=== PATIENT | male | born 1965 | race Caucasian/White ===

== ENCOUNTER 2023-08-09 07:40 | Outpatient (OUT) | payer BC, SELFPAY ==
[2023-08-09 07:59] LABS: Basophils Absolute Auto 0.1 10^3/uL (0.0-0.1); Basophils Percent Auto 0.7 % (0.2-2.0); Eosinophils Absolute Auto 0.2 10^3/uL (0.0-0.7); Eosinophils Percent Auto 2.1 % (0.9-7.0); Hematocrit 51.2 % (42.0-54.0); Hemoglobin 16.8 g/dL (14.0-18.0); Immature Granulocytes Abs Auto 0.03 10^3/uL (0.00-0.03); Immature Granulocytes Pct Auto 0.4 % (0.0-0.5); Lymphocytes Absolute Auto 1.5 10^3/uL (1.2-3.8); Lymphocytes Percent Auto 19.9 % (20.5-60.0); Mean Corpuscular HGB Conc 32.8 g/dL (29.9-35.2); Mean Corpuscular Volume 85.2 fL (80.0-94.0); Mean Platelet Volume 10.6 fL (9.5-13.5); Monocytes Absolute Auto 0.5 10^3/uL (0.3-0.8); Monocytes Percent Auto 6.8 % (1.7-12.0); Neutrophils Absolute Auto 5.1 10^3/uL (1.4-6.5); Neutrophils Percent Auto 70.1 % (43.0-75.0); Platelet Count 247 10^3/uL (150-450); Red Blood Count 6.01 10^6/uL (4.70-6.10); Red Cell Distribution Width 12.9 % (11.0-15.0); White Blood Count 7.3 10^3/uL (4.0-11.0)
[2023-08-09 08:30] LABS: Alanine Aminotransferase 33 U/L (16-63); Albumin Globulin Ratio 1.1; Albumin Level 3.8 g/dL (3.4-5.0); Alkaline Phosphatase 117 U/L (46-116); Anion Gap 13.3; Aspartate Amino Transferase 17 U/L (15-37); BUN Creatinine Ratio 23.3; Bilirubin Total 0.5 mg/dL (0.2-1.0); Calcium 9.2 mg/dL (8.5-10.1); Chloride 104 mmol/L (98-107); Cholesterol 180 mg/dL (<=200); Estimated GFR (African America >60 (>=60); Estimated GFR (Non-African Ame >60 (>=60); Globulin 3.6 g/dL; Glucose 117 mg/dL (74-106); HDL Cholesterol 45 mg/dL (40-60); Potassium 4.3 mmol/L (3.5-5.1); Sodium 140 mmol/L (136-145); Total Protein 7.4 g/dL (6.4-8.2); Triglycerides 120 mg/dL (<=150)
[2023-08-09 09:41] LABS: Prostate Specific Antigen Scrn 0.26 ng/mL (<=4.00)
== END 2023-08-09 07:41 | disposition home or self-care (01) ==
LOC: LAB 07:43
PROVIDERS: PCP Internal Medicine; Visit Provider Internal Medicine
DX: Z00.00 Encounter for general adult medical examination without abnormal findings (principal)
CPT/HCPCS: 36415; 80053; 80061; 85025; G0103

== ENCOUNTER 2024-09-07 09:12 | Outpatient (OUT) | payer BC, SELFPAY ==
--- OUTSIDE RECORDS SUMMARY | 2024-09-07 09:17 | XMS_ITS | CCD ---
Author Organization [facility] Inform ion Partnership [facility] Care Team Providers Care Electric Train Driver Name Role Phone Tye Champion Unavailable Unavailable Unavailable Casey Willis Unavailable Vinicio España Unavailable DO Tye Champion Primary Care Provider DO Casey Willis Attending Provider [phone] DO Vinicio España Attending Provider KAYLAN, DR POOL Admitting Unavailable BALL, DR POOL Attending Unavailable BALL, DR POOL Primary Care Unavailable BALL, DR POOL Consulting Unavailable BALL, DR POOL Admitting Unavailable BALL, DR POOL Attending Unavailable BALL, DR POOL Primary Care Unavailable BALL, DR POOL Consulting Unavailable MISC, DR ISLAS Admitting Unavailable MISC, DR ISLAS Attending Unavailable BALL, DR POOL Primary Care Unavailable BALL, DR POOL Consulting Unavailable BALL, DR POOL Admitting Unavailable BALL, DR POOL Attending Unavailable BALL, DR POOL Primary Care Unavailable BALL, DR POOL Consulting Unavailable WEST, DR CASEY Lockwood Consulting Unavailable BALL, DR POOL Admitting Unavailable BALL, DR POOL Attending Unavailable BALL, DR POOL Primary Care Unavailable BALL, DR POOL Consulting Unavailable ZIEBER, DR MAGGY Quinones Consulting Unavailable Tye Champion Unavailable DO Tye Champion Primary Care Provider [phone] DO Jeffrey Ayoub Attending Provider Isreal, Dr. Adriel Wise Attending Jasmyne Ayoub, Dr. Adriel Wise Referring Kerlineva gustavo Champion, Dr. Tye Munoz Primary Care Stephanie Champion, Dr. Tye Munoz Primary Care Stephanie Ayoub, Dr. Adriel Wise Attending Jasmyne Ayoub, Dr. Adriel Wise Referring Kerlinemeche Ayoub, Dr. Adriel Wise Attending Jasmyne Champion, Dr. Tye Munoz Primary Care Stephanie Ayoub, Dr. Adriel Wise Attending Jasmyne Ayoub, Dr. Adriel Wise Referring Jasmyne Champion, Dr. Tye Munoz Primary Care Stephanie Champion, Tye Primary Care Unavailable Casey Willis Admitting Unavailable Casey Willis Attending Unavailable Jeffrey Ayoub Attending Unavailable Jeffrey Ayoub Admitting Unavailable Tye Champion Primary Care Unavailable Kaylan, Tye Primary Care Unavailable Vinicio España Admitting Unavailable Vinicio España A Attending Unavailable Eloy Españain A Admitting Unavailable Vinicio España A Attending Unavailable Tye Champion Primary Care Unavailable Jeffrey Ayoub Admitting Unavailable Jeffrey Ayoub Attending Unavailable Tye Champion Primary Care Unavailable ADRIEL AYOUB Attending Unavailable TYE CHAMPION Primary Care Unavailable Tye Champion MD Primary Care Provider SONIA CARPIO Attending Unavailable CHRISTOPHER WYLIE Attending Unavailable SONIA CARPIO Attending Unavailable SONIA CARPIO Attending Unavailable Allergies Allergy Classification Reported Allergen(s) Allergy Type Date of Onset Reaction(s) Facility (3 sources) patient allergy list reviewed by nurse or physicia Propensity to adverse reactions 9 Comment:Done iRewind Other (3 sources) Statins Support *DIETARY PRODUCTS/DIETAR Y MANAGEME Propensity to adverse reactions Comment:STATIN S iRewind Other (7 sources) Other Propensity to adverse reactions 3 [facility] Medications Current Medications Medication Drug Class(es) Dates Sig (Normalized) Sig (Original) amLODIPine 5 mg oral tablet (20 sources) Dihydropyridine Calcium Channel Meghna Start: 01-14-2024 Amlodipine 5 mg tablet Active 0 .ROUTE .COMPLEX 90 January 14, 2024 5:27pm TAKE 1 TABLET DAILY Start: 08-01-2023 End: 01-14-2024 take 1 tablet by mouth once daily Amlodipine 5 mg tablet Discontinued 5 MG PO Daily August 01, 2023 1:00am January 14, 2024 5:27pm Start: 08-11-2019 End: 08-01-2023 take 5 mg by mouth once daily in the morning Amlodipine 10 mg tablet Discontinued 5 MG PO Every morning August 11, 2019 12:00am August 01, 2023 12:02pm Start: 08-11-2019 End: 08-01-2023 take 5 mg by mouth once daily in the morning Amlodipine Discontinued 5 MG PO Every morning August 11, 2019 12:00am August 01, 2023 12:02pm amLODIPine Besyl ate 10 MG TK 1 T PO D Oral for 90 Active aspirin 81 mg chewable tablet (20 sources) Platelet Aggregation Inhibitor, Nonsteroidal Anti-inflammatory Drug Start: 10-18-2021 take 1 tablet by mouth every twenty-four hours Aspirin 81 MG 1 tablet Orally Once a day for 37 days September, Active Start: 10-18-2021 take 1 tablet by domitila th every twelve hours Aspirin 81 MG 1 tablet Orally twice a day for 37 days September, Active Start: 09-16-2018 take 1 tablet by domitila th once daily in the morning Aspirin (Aspir-81) 81 mg Tablet,Delayed Release (Dr/Ec) Active 81 MG PO Every morning September 16, 2018 12:00am atorvastatin 80 mg oral tablet (20 sources) HMG-CoA Reductase Inhibitor Start: 07-12-2023 Atorvastatin 80 mg tablet Active 0 .ROUTE .COMPLEX 90 July 12, 2023 3:34pm TAKE 1 TABLET EVERY EVENING Start: 07-05-2021 End: 07-12-2023 take 1 tablet by mouth once daily at bedtime Atorvastatin 80 mg tablet Discontinued 80 MG PO Daily at bedtime November 24, 2022 12:00am July 12, 2023 3:34pm Start: 08-11-2019 End: 11-24-2022 take 1 tablet by mouth at bedtime Atorvastatin 40 mg tablet Discontinued 40 MG PO Bedtime August 11, 2019 12:00am November 24, 2022 9:08am colchicine 0.6 mg oral capsule (1 source) Start: 08-21-2024 take 1 capsule by mouth twice daily Colchicine 0.6 mg capsule Active 0.6 MG PO Twice daily 14 7 August 21, 2024 12:00am Continuous Glucose Sensor (Dexcom G7 Sensor) misc (5 sources) Start: 04-08-2024 Continuous Glu cose Sensor (Dexcom G7 Sensor) misc Indications: Type 2 diabetes mellitus with both eyes affected by mild nonproliferative retinopathy without macular edema, with long-term current use of insulin (CMS/HCC) Inject 1 Device under the skin See administration instructions Change every 10 days 9 each 3 04/08/2024 Active docusate sodium 100 mg oral capsule (11 sources) Start: 10-18-2021 take 1 capsule by mouth every twelve hours doxycycline hyclate 100 mg oral tablet (11 sources) Tetracycline -class Drug Start: 10-18-2021 take 1 tablet by mouth every twelve hours Doxycycline Hyclate 100 MG 1 tablet Orally Twice a day for 7 days September, Active Start: 10-10-2019 End: 01-13-2020 take 1 tablet by mouth twice daily Doxycycline Hyclate 100 mg tablet Discontinued 100 MG PO Twice daily 10 October 10, 2019 12:00am January 13, 2020 5:24am empagliflozin 10 mg oral tablet (20 sources) Sodium-Glucose Cotransporter 2 Inhibitor Start: 01-10-2022 End: 07-05-2024 take 1 tablet by mouth once daily empagliflozin (Jardiance) 10 MG Indications: Type 2 diabetes mellitus with peripheral neuropathy (CMS/HCC) Take 1 tablet (10 mg) by mouth Daily 90 tablet 3 07/05/2024 Active Start: 01-10-2022 take 1 tablet by domitila th once daily Empagliflozin (Jardiance) 10 mg tablet Active 10 MG PO Daily January 10, 2022 12:00am take 1 tablet by domitila th once daily Jardiance 10 MG Oral Tablet TAKE 1 TABLET BY MOUTH ONCE DAILY Quantity: 0 Refills: 0 Ordered: 29-Dec-2022 DO Active take 0.5 tablet by m outh once daily Jardiance 25 MG Oral Tablet 1/2 tablet daily Quantity: 0 Refills: 0 Ordered: 04-May-2021 DO Active 3 ml insulin degludec 200 unt/ml pen injector (20 sources) Insulin Analog Start: 07-15-2024 End: 07-15-2025 insulin degludec (Tresiba FlexTouch) 200 UNIT/ML injection Indications: Type 2 diabetes mellitus with peripheral neuropathy (CMS/HCC) Inject 52 Units under the skin in the morning. 30 mL 3 07/15/2024 07/15/2025 Active Start: 07-05-2024 End: 07-05-2025 insulin degludec (Tresiba Fl exTouch) 200 UNIT/ML injection Indications: Type 2 diabetes mellitus with peripheral neuropathy (CMS/HCC) Inject 58 Units under the skin in the morning. 30 mL 3 07/05/2024 07/05/2025 Active Start: 06-19-2024 End: 07-05-2024 insulin degludec (Tresiba Fl exTouch) 200 UNIT/ML injection Indications: Type 2 diabetes mellitus with peripheral neuropathy (CMS/HCC) Inject 70 Units under the skin in the morning. 33 mL 1 06/19/2024 07/05/2024 Discontinued (Dose adjustment) Start: 03-29-2024 insulin deglud ec (Tresiba FlexTouch) 200 UNIT/ML injection Indications: Type 2 diabetes mellitus with peripheral neuropathy (CMS/HCC) Inject 70 Units under the skin in the morning. 33 mL 3 03/29/2024 Active Start: 01-01-2024 End: 03-29-2024 insulin degludec (Tresiba Fl exTouch) 200 UNIT/ML injection Indications: Type 2 diabetes mellitus with peripheral neuropathy (CMS/HCC) INJECT 70 UNITS SUBCUTANEOUSLY DAILY 33 mL 3 01/01/2024 03/29/2024 Discontinued (Reorder) Start: 01-10-2022 Insulin Deglud ec (Tresiba Flextouch U-200) 200 unit/mL (3 mL) insulin pen Active 70 UNIT SUBCUT Daily January 10, 2022 12:00am Start: 01-10-2022 Insulin Deglud ec (Tresiba Flextouch U-200) 200 unit/mL (3 mL) insulin pen Active 70 UNIT SUBCUT Daily January 10, 2022 12:00am Tresiba 100 UNIT /ML as directed Subcutaneous Active Tresiba 100 UNIT /ML as directed Subcutaneous Active Insulin Degludec (Tresiba Flextouch U-200) 200 unit/mL (3 mL) insulin pen (7 sources) Start: 08-02-2024 Insulin Deglud ec (Tresiba Flextouch U-200) 200 unit/mL (3 mL) insulin pen Active 52 UNIT SUBCUT Daily August 02, 2024 9:39am Start: 01-10-2022 End: 08-02-2024 Insulin Degludec (Tresiba Fl extouch U-200) 200 unit/mL (3 mL) insulin pen Discontinued 64 UNIT SUBCUT Daily January 10, 2022 12:00am August 02, 2024 9:39am Start: 01-10-2022 Insulin Deglud ec (Tresiba Flextouch U-200) 200 unit/mL (3 mL) insulin pen Active 64 UNIT SUBCUT Daily January 10, 2022 12:00am insulin isophane / insulin, regular, human (7 sources) Insulin Start: 05-25-2022 HumuLIN R U-50 0 (CONCENTRATED) 500UNIT/ML HumuLIN R U-500 (CONCENTRATED)( 500UNIT/ML Subcutaneous 5-7 am, 10-12 noon, 17-20 pm three times daily ) Active -Hx Entry Subcutaneous three times daily for 0 *Pick strength-form from Mercatus for eRX* Apr, Active HumuLIN 70/30 Kw ikPen (70-30) 100 UNIT/ML Subcutaneous Suspension Pen-injector inject as directed Quantity: 0 Refills: 0 Ordered: 23-Nov-2022 DO Active 3 ml insulin lispro 200 unt/ml pen injector (18 sources) Insulin Analog Start: 02-21-2024 End: 03-29-2024 insulin lispro (HumaLOG KWIKPEN) 200 UNIT/ML solution pen-injector pen Indications: Type 2 diabetes mellitus with peripheral neuropathy (CMS/HCC) 1:4 CARBOHYDRATE RATIO BEFORE MEALS PLUS CORRECTION 1:30 GREATER THAN 150MG/DL ( MAXIMUM DAILY: 100 UNIT) 45 mL 3 03/29/2024 Active Start: 01-10-2022 Insulin Lispro (Humalog Kwikpen Insulin) 200 unit/mL (3 mL) insulin pen Active 1 UNIT SUBCUT Three times daily January 10, 2022 12:00am 1:4 carb ratio with meals Start: 01-10-2022 Insulin Lispro (Humalog Kwikpen Insulin) 200 unit/mL (3 mL) insulin pen Active 1 UNIT SUBCUT Three times daily January 10, 2022 12:00am 1:4 carb ratio with meals Insulin Lispro 1 00 UNIT/ML Subcutaneous Solution USE DIRECTED. Quantity: 0 Refills: 0 Ordered: 04-May-2021 DO Active Lisinopril (20 sources) Angiotensin Converting Enzyme Inhibitor Start: 06-09-2024 Lisinopril 40 mg tab let Active 0 .ROUTE .COMPLEX 90 June 09, 2024 9:49am TAKE 1 TABLET DAILY Start: 09-16-2018 End: 06-09-2024 lisinopril 40 MG tablet 03/30 Active 24 hr metoprolol succinate 50 mg extended release oral tablet (20 sources) beta-Adrenergic Meghna Start: 06-09-2024 Metopr olol Succinate 50 mg tablet extended release 24 hr Active 0 .ROUTE .COMPLEX 90 June 09, 2024 9:50am TAKE 1 TABLET DAILY Start: 07-05-2021 take 1 tablet by domitila th once daily Metoprolol Succinate ER 50MG Metoprolol Succinate ER 50MG, 1 Tablet Tablet daily # 0, 07/05/2021, No Refill. Active Oral daily for 0 *Pick strength-form from Mercatus for eRX* 07 Jun, 2021 Active Start: 09-16-2018 End: 06-09-2024 take 1 capsule by mouth once daily in the morning Metoprolol Succinate 50 mg Cap,Sprinkle,Er 24hr Dose Pack Discontinued 50 MG PO Every morning September 16, 2018 12:00am June 09, 2024 9:50am metoprolol succi eliel XL (Toprol-XL) 50 MG 24 hr tablet 1 (one) time each day at the same time Active Multiple Vitamin (Multi-Vitamin) tablet (7 sources) Multiple Vitamin (Multi-Vitamin) tablet Take by mouth Active Multiple Vitamins-Minerals (EYE VITAMINS & MINERALS PO) (7 sources) Start: 11-25-19 Multiple Vitamins-Minerals (EYE VITAMINS & MINERALS PO) 1 tablet 11/24/2022 Active Multivitamin preparation (2 sources) Start: 11-25-19 take 1 tablet by mouth once daily Multivitamin Active 1 TAB PO Daily November 24, 2022 12:00am Multivitamin Tablet (2 sources) Start: 11-25-19 take 1 tablet by mouth once daily Multivitamin Tablet Active 1 TAB PO Daily November 24, 2022 12:00am nitroglycerin 0.4 mg sublingual tablet (20 sources) Nitrate Vasodilator Start: 11-25-19 End: 08-02-19 nitroglycerin (Nitrostat) 0.[address] 0.4 mg under the tongue 11/24/2022 Active Start: 11-24-2022 End: 08-02-2023 apply 0.2 mg transdermal route every hour Nitroglycerin 0.2 mg/hr patch 24 hour Discontinued 0.2 MG TRANSDERML Daily November 24, 2022 12:00am August 02, 2023 10:38am Start: 11-24-2022 End: 08-02-2023 Nitroglycerin Discontinued 0 .2 MG TRANSDERML Daily November 24, 2022 12:00am August 02, 2023 10:38am Start: 11-17-2022 apply 1 dose transde rmal route once daily, then apply 1 dose transdermal route every twenty-four hours Nitroglycerin 0.2 MG/HR Transdermal Patch 24 Hour APPLY PATCH FOR 12 TO 14 HOURS DAILY, THEN REMOVE Quantity: 90 Refills: 3 Ordered: 17-Nov-2022 Adriel Ayoub DO Start : 17-Nov-2022 Active new start Start: 08-13-2019 End: 03-24-2022 Nitroglycerin 0.4 mg tablet, sublingual Discontinued 0.4 MG SUBLINGUAL every 5 to 15 minutes as needed for chest pain 60 August 13, 2019 12:00am March 24, 2022 10:56am until response; do not exceed 3 doses per episode Nitroglycerin 0. 4 MG DISSOLVE 1 T UNDER THE TONGUE Q 5 TO 15 MINUTES PRN FOR CHEST PAIN UNTIL RESPONSE. DO NOT EXCEED 3 DOSES PER EPISODE Sublingual for 30 Not-Taking/PRN oxyCODONE hydrochloride 5 mg oral tablet (3 sources) Opioid Agonist Start: 10-18-2021 take 1 tablet by mouth every four hours as needed for pain oxyCODONE HCl 5 MG 1 tablet as needed for pain Orally every 4 hours for 7 days September, Active ticagrelor 90 mg oral tablet (20 sources) Start: 05-25-2022 Brilinta 90MG Brilinta( 90MG Oral 1 two times daily ) Active -Hx Entry Oral two times daily for 0 *Pick strength-form from Mercatus for eRX* Apr, Active Start: 09-18-2018 End: 01-13-2020 take 1 tablet by mouth twice daily Ticagrelor (Brilinta) 90 mg tablet Discontinued 90 MG PO Twice daily 180 September 18, 2018 12:00am January 13, 2020 5:24am Tirzepatide (2 sources) Start: 08-02-2024 Tirzepatide (Mounjaro) 2.5 mg/0.5 mL pen injector Active 2.5 MG SUBCUT every week August 02, 2024 1:00am for 4 weeks Tirzepatide (Mounjaro) 5 MG/0.5ML solution auto-injector (9 sources) Start: 07-05-2024 inject 5 mg by subcutaneous injection every week Tirzepatide (Mounjaro) 5 MG/0.5ML solution auto-injector Indications: Type 2 diabetes mellitus with peripheral neuropathy (CMS/HCC) Inject 5 mg under the skin 1 (one) time per week 6 mL 3 07/05/2024 Active Start: 03-29-2024 End: 07-05-2024 inject 5 mg by subcutaneous injection every week Tirzepatide (Mounjaro) 5 MG/0.5ML solution auto-injector Indications: Type 2 diabetes mellitus with peripheral neuropathy (CMS/HCC) Inject 5 mg under the skin 1 (one) time per week 6 mL 3 03/29/2024 07/05/2024 Discontinued (Reorder) Start: 03-29-2024 inject 5 mg by subcu taneous injection every week Tirzepatide (Mounjaro) 5 MG/0.5ML solution auto-injector Indications: Type 2 diabetes mellitus with peripheral neuropathy (CMS/HCC) Inject 5 mg under the skin 1 (one) time per week 6 mL 3 03/29/2024 Active Vit A-Vit C-Vit C-[id number] (Eye Vitamin And Minerals) [id number] Tablet (4 sources) Start: 11-24-2022 take 1 tablet by mouth once daily Vit A-Vit C-Vit F-Cclf-Hoeszz (Eye Vitamin And Minerals) [id number] iija-[id number]-znyc Tablet Active 1 TAB PO Daily November 24, 2022 12:00am Completed/Discontinued Medications Medication Drug Class(es) Dates Sig (Normalized) Sig (Original) acetaminophen 500 mg oral tablet (2 sources) Start: 10-18-2021 take 2 tablets by mouth every eight hours as needed Tylenol Extra Strength 500 MG 2 tabs Orally every 8 hrs for 30 days September, Not-Taking/PRN acetaminophen 325 mg / HYDROcodone bitartrate 5 mg oral tablet (16 sources) Opioid Agonist Start: 10-10-2019 End: 01-10-2022 take 1 tablet by mouth every four to six hours as needed for pain Hydrocodone-Acetam inophen ([place]) 5-325 mg Tablet Discontinued 1 TAB PO EVERY 4-6 HOURS as needed for Pain 15 January 13, 2020 January 10, 2022 6:23am clopidogrel 75 mg oral tablet (6 sources) P2Y12 Platelet Inhibitor Start: 11-24-2022 End: 08-02-2023 take 1 tablet by mouth once daily Clopidogrel 75 mg tablet Discontinued 75 MG PO 1 time daily November 24, 2022 12:00am August 02, 2023 10:38am Start: 11-23-2022 Clopidogrel Bi sulfate 75 MG Oral Tablet take 4 tablets the first dose equaling 300mg, then take 1 tablet daily equaling 75 mgs. Quantity: 94 Refills: 3 Ordered: 23-Nov-2022 Isreal JOHNSON Adriel Start : 23-Nov-2022 Active Continuous Glucose Sensor (FreeStyle Yosi 3 Sensor) [facility] (6 sources) Start: 03-29-2024 End: 07-05-2024 Continuous Glucose Sensor (FreeStyle Yosi 3 Sensor) [facility] Indications: Type 2 diabetes mellitus with peripheral neuropathy (CMS/HCC) Inject 1 each under the skin every 14 (fourteen) days 6 each 3 03/29/2024 07/05/2024 Discontinued Start: 03-29-2024 Continuous Glu cose Sensor (FreeStyle Yosi 3 Sensor) [facility] Indications: Type 2 diabetes mellitus with peripheral neuropathy (CMS/HCC) Inject 1 each under the skin every 14 (fourteen) days 6 each 3 03/29/2024 Active Start: 01-24-2024 End: 03-29-2024 Continuous Glucose Sensor (F reeStyle Yosi 3 Sensor) [facility] Indications: Type 2 diabetes mellitus with peripheral neuropathy (CMS/HCC) Inject 1 each under the skin every 14 (fourteen) days 6 each 1 01/24/2024 03/29/2024 Discontinued (Reorder) cyclobenzaprine hydrochloride 10 mg oral tablet (11 sources) Muscle Relaxant Start: 10-18-2021 take 0.5-1 tablets by mouth every eight hours as needed for muscle spasms Cyclobenzaprine HCl 10 MG 1/2 to 1 tablet as needed for muscle spasm Orally every 8 hours for 14 days September, Not-Taking/PRN Diclofenac (11 sources) Nonsteroidal Anti-inflammatory Drug Start: 09-25-2019 Voltaren 1 % apply 1-2 grams to affected area Transdermal BID PRN for 30 days Aug, Not-Taking/PRN Start: 09-25-2019 Voltaren 1 % a pply 1-2 grams to affected area Transdermal BID PRN for 30 days Aug, Not-Taking Start: 09-25-2019 Start: 09-25-2019 Voltaren 1 % a pply 1-2 grams to affected area Transdermal BID PRN for 30 days Aug, Not-Taking ibuprofen 800 mg oral tablet (8 sources) Nonsteroidal Anti-inflammatory Drug Start: 01-13-2020 End: 01-10-2022 take 1 tablet by mouth three times daily as needed for pain Ibuprofen 800 mg Tablet Discontinued 800 MG PO Three times daily as needed for Pain January 13, 2020 12:00am January 10, 2022 6:24am insulin aspart, human 100 unt/ml injectable solution (8 sources) Insulin Analog Start: 09-17-2018 End: 08-11-2019 Insulin Aspart U-100 (Novolog U-100 Insulin Aspart) 100 unit/mL Solution Discontinued SOLUTION September 17, 2018 12:00am August 11, 2019 10:49pm Please contact the information source for Protocol details. 3 ml insulin glargine 100 unt/ml pen injector (9 sources) Insulin Analog Start: 09-16-2018 End: 08-11-2019 Insulin Glargine (Basaglar Kwikpen U-100 Insulin) 100 unit/mL (3 mL) Insulin Pen Discontinued 65 UNITS SUBCUT Daily at bedtime September 16, 2018 12:00am August 11, 2019 10:44pm Semglee 100 UNIT /ML Subcutaneous Solution INJECT SUBCUTANEOUSLY DIRECTED. Quantity: 0 Refills: 0 Ordered: 04-May-2021 DO Active Insulin Lispro 100 UNIT/ML SOLN (1 source) Insulin Lispro 1 00 UNIT/ML SOLN USE DIRECTED. Quantity: 0 Refills: 0 Ordered: 04-May-2021 DO Active insulin, regular, human 500 unt/ml injectable solution (20 sources) Insulin Start: 08-11-2019 End: 01-10-2022 inject 7 [IU] by subcutaneous injection once daily before breakfast Insulin Regular Hum U-500 Conc 500 unit/mL solution Discontinued 7 UNITS SUBCUT once daily before breakfast August 11, 2019 12:00am January 10, 2022 6:25am Start: 08-11-2019 End: 01-10-2022 inject 15 [IU] by subcutaneous injection once daily Insulin Regular Hum U-500 Conc 500 unit/mL solution Discontinued 15 UNITS SUBCUT Daily with supper August 11, 2019 12:00am January 10, 2022 6:25am Start: 09-16-2018 End: 08-11-2019 Insulin Regular Human (Humul in R Regular U-100 Insuln) 100 unit/mL Solution Discontinued SOLUTION September 16, 2018 12:00am August 11, 2019 10:44pm Please contact the information source for Protocol details. HumuLIN R U-500 (CONCENTRATED) 500 UNIT/ML Subcutaneous for 80 Active HumuLIN R U-500 (CONCENTRATED) 500 UNIT/ML Subcutaneous for 80 Active 24 hr metFORMIN hydrochloride 500 mg extended release oral tablet (20 sources) Biguanide Start: 08-11-2019 End: 01-10-2022 take 1 tablet by mouth twice daily Metformin 500 mg tablet extended release 24 hr Discontinued 500 MG PO Twice daily August 11, 2019 12:00am January 10, 2022 6:25am take 1 tablet by mouth twice babak ly metFORMIN HCl - 500 MG Oral Tablet TAKE 1 TABLET TWICE DAILY. Quantity: 0 Refills: 0 Ordered: 04-May-2021 DO Active ondansetron 4 mg disintegrating oral tablet (8 sources) Serotonin-3 Receptor Antagonist Start: 01-13-2020 End: 01-10-2022 Ondansetron 4 mg Tablet,Disintegrating Discontinued 4 MG PO every 6 to 8 hours as needed for Nausea January 13, 2020 12:00am January 10, 2022 6:25am pravastatin sodium 40 mg oral tablet (8 sources) HMG-CoA Reductase Inhibitor Start: 09-16-2018 End: 08-11-2019 take 1 tablet by mouth at bedtime Pravastatin 40 mg Tablet Discontinued 40 MG PO Bedtime September 16, 2018 12:00am August 11, 2019 10:50pm traMADol hydrochloride 50 mg oral tablet (5 sources) Opioid Agonist Start: 03-24-2022 End: 03-24-2022 take 1 tablet by mouth every four hours as needed for pain Tramadol 50 mg tablet Discontinued 50 MG PO Q4H as needed for pain 10 7 March 24, 2022 12:00am March 24, 2022 10:55am Tylenol Extra Strength 500 MG (9 sources) Start: 10-18-2021 Start: 10-18-2021 take 2 tablets by mo uth every eight hours Tylenol Extra Strength 500 MG 2 tabs Orally every 8 hrs for 30 days September, Not-Taking Start: 10-18-2021 take 2 tablets by mo uth every eight hours Tylenol Extra Strength 500 MG 2 tabs Orally every 8 hrs for 30 days September, Active ubiquinol 200 mg oral capsule (8 sources) Start: 08-11-2019 End: 01-13-2020 take 1 capsule by mouth at bedtime Coq10 (Ubiquinol) 200 mg Capsule Discontinued 200 MG PO Bedtime August 11, 2019 12:00am January 13, 2020 5:24am Problems Active Problems Problem Classification Problem Date Documented Date Episodic/Chronic Acute bronchitis (3 sources) Acute bronchitis; Translations: [Acute bronchitis due to other specified organisms] Episodic Anxiety disorders (4 sources) Generalized anxiety disorder; Translations: [Generalized anxiety disorder] 02-19-2024 Chronic Coronary atherosclerosis and other heart disease (20 sources) Coronary atherosclerosis; Translations: [Coronary atherosclerosis of unspecified type of vessel, [place] or graft] Onset: 05-12-2022 08-11-2019 Chronic Comment on above: Problem List clean-u p per request of Phys. 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; Translations: [Type 1 diabetes mellitus with unspecified complications] Onset: 05-07-2015 07-30-2023 Chronic Disorders of lipid metabolism (20 sources) Hyperlipidemia; Translations: [Other and unspecified hyperlipidemia] Onset: 02-11-2002 Chronic E Codes: Adverse effects of medical drugs (3 sources) Adverse reaction to anticoagulant antagonists; Translations: [Adverse effect of anticoagulant antagonists, vitamin K and other coagulants, initial encounter] Episodic Esophageal disorders (6 sources) Gastro-esophageal reflux disease with esophagitis; Translations: [Gastro-esophageal reflux disease with esophagitis, without bleeding] Onset: 08-10-2016 08-01-2023 Chronic Essential hypertension (16 sources) Essential hypertension; Translations: [Unspecified essential hypertension] Onset: 05-12-2022 Chronic Hyperplasia of prostate (6 sources) Benign prostatic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 [address] Cholesterol.total/Chol esterol in HDL [Mass ratio] 3.8 {ratio} Normal <5.0 [facility] Comment on above: Result Comment: PERF ORMED BY: [place] [address] PATHOLOGIST [employer]IS [employer]ALL [employer] HAND KRUPA WILCOX M.D. Performed By: #### C REAT, BUN, PP, CBC, LYTES, LIPID #### [facility] [address] LDL Cholesterol,Calculated 95 mg/dL Normal 0-100 [facility] Comment on above: Result Comment: LDL ATP III CLASSIFICATION LDL less than 100 mg/dL Optimal LDL 100-129 mg/dL Near or above optimal LDL 130-159 mg/dL Borderline high LDL 160-189 mg/dL High LDL greater than 189 mg/dL Very high Performed By: #### C REAT, BUN, PP, CBC, LYTES, LIPID #### [facility] [address] Triglyceride w/Reflex 118 mg/dL Normal 0-149 [facility] Comment on above: Result Comment: TRIG ATP III CLASSIFICATION TRIG less than 150 mg/dL Normal TRIG 150-199 mg/dL Borderline high TRIG 200-500 mg/dL High TRIG greater than 500 mg/dL Very high Standard traceable to the Center for Disease Conrtrol and Prevention (CDC) test method. Performed By: #### C REAT, BUN, PP, CBC, LYTES, LIPID #### [facility] [address] VLDL CHOLESTEROL 23 mg/dL Normal [facility] Comment on above: Performed By: #### C REAT, BUN, PP, CBC, LYTES, LIPID #### [facility] [address] Lymphocytes Auto (Bld) [#/Vo l]Ordered By: Jeffrey Ayoub on 11-24-2022 Lymphocytes (Bld) [#/Vol] 1.4 10*3/uL 1.00-4.8 [facility] Lymphocytes/100 WBC Auto (Bl d)Ordered By: Jeffrey Ayoub on 11-24-2022 Lymphocytes/100 WBC (Bld) 20.5 % . [facility] MCH Auto (RBC) [Entitic mass ]Ordered By: Jeffrey Ayoub on 11-24-2022 MCH (RBC) [Entitic mass] 28.6 pg 27.5-35.2 [facility] MCHC Auto (RBC) [Mass/Vol]Or dered By: Jeffrey Ayoub on 11-24-2022 MCHC (RBC) [Mass/Vol] 34.3 g/dL 32.5-35.6 [facility] MCV Auto (RBC) [Entitic vol] Ordered By: Jeffrey Ayoub on 11-24-2022 MCV (RBC) [Entitic vol] 83.4 fL 83.5-101 [facility] Monocytes Auto (Bld) [#/Vol] Ordered By: Jeffrey Ayoub on 11-24-2022 Monocytes (Bld) [#/Vol] 0.4 10*3/uL 0.0-0.8 [facility] Monocytes/100 WBC Auto (Bld) Ordered By: Jeffrey Ayoub on 11-24-2022 Monocytes/100 WBC (Bld) 6.1 % . [facility] Neutrophils Auto (Bld) [#/Vo l]Ordered By: Jeffrey Ayoub on 11-24-2022 Neutrophils (Bld) [#/Vol] 4.8 10*3/uL 1.8-7.7 [facility] Neutrophils/100 WBC Auto (Bl d)Ordered By: Jeffrey Ayoub on 11-24-2022 Neutrophils/100 WBC (Bld) 71.0 % . [facility] No Panel InformationOrdered By: Jeffrey Ayoub on 11-24-2022 Estimated GFR (CKD-EPI) > 60.0 mL/Min [facility] Creatinine Clearance (Chem N/A [facility] Nucleated erythrocytes [Pres ence] in Blood by Automated countOrdered By: Jeffrey Ayoub on 11-24-2022 Nucleated RBC Auto Ql (Bld) 0.2 /100{WBC} 0-0.5 [facility] Platelet mean volume Auto (B ld) [Entitic vol]Ordered By: Jeffrey Ayoub on 11-24-2022 Platelet mean volume (Bld) [Entitic vol] 8.5 fL 6.6-10.1 [facility] Platelet poor plasma interna tional normalized ratio (INR) by coagulation assay (relatOrdered By: Jeffrey Ayoub on 11-24-2022 INR Coag (PPP) [Relative time] 1.0 {INR} [facility] Comment on above: INR Therapeutic Rang e A) Pre- and Peroperative OAT started two weeks before surgery. NOT HIP SURGERY: 1.5 - 2.5 HIP SURGERY: 2 - 3B) Primary and secondary prevention of venous THROMBOSIS: 2 - 3C) Active venous thrombosis, pulmonary embolismand prevention of recurrent venous thrombosis: 2 - 3D) Prevention of arterial thromboembolismincluding patients with mechanical heart valves: 3 - 4.5 Platelets Auto (Bld) [#/Vol] Ordered By: Jeffrey Ayoub on 11-24-2022 Platelets (Bld) [#/Vol] 240 10*3/uL 150-450 [facility] Potassium [Moles/volume] in Serum or PlasmaOrdered By: Jeffrey Ayoub on 11-24-2022 Potassium [Moles/Vol] 4.6 mmol/L 3.5-5.1 [facility] RBC Auto (Bld) [#/Vol]Ordere d By: Jeffrey Ayoub on 11-24-2022 RBC (Bld) [#/Vol] 6.11 10*6/uL 3.90-5.60 [facility] Serum or plasma anion gap de terminationOrdered By: Jeffrey Ayoub on 11-24-2022 Anion gap [Moles/Vol] 10.5 mmol/L 6.0-15.0 [facility] Serum or plasma high density lipoprotein (HDL) cholesterol measurementOrdered By: Jeffrey Ayoub on 11-24-2022 Cholesterol in HDL [Mass/Vol] 43 mg/dL 23-92 [facility] Comment on above: HDL CHOL ATP-III CLA SSIFICATION Cardiovascular RiskHDL > or equal to 60 mg/dL LOWHDL < 40 mg/dL HIGH Serum or plasma total choles terol/high density lipoprotein (HDL) cholesterol mass ratOrdered By: Jeffrey Ayoub on 11-24-2022 Cholesterol.total/Chol esterol in HDL [Mass ratio] 3.8 {ratio} <5.0 [facility] Sodium [Moles/volume] in Ser um or PlasmaOrdered By: Jeffrey Ayoub on 11-24-2022 Sodium [Moles/Vol] 138 mmol/L 136-145 [facility] Triglyceride [Mass/volume] i n Serum or PlasmaOrdered By: Jeffrey Ayoub on 11-24-2022 Triglyceride [Mass/Vol] 118 mg/dL 0-149 [facility] Comment on above: TRIG ATP III CLASSIF ICATIONTRIG less than 150 mg/dL NormalTRIG 150-199 mg/dL Borderline highTRIG 200-500 mg/dL High TRIG greater than 500 mg/dL Very highStandard traceable to the Center for Disease Conrtrol and Prevention (CDC) test method. Urea nitrogen [Mass/volume] in Serum or PlasmaOrdered By: Jeffrey Ayoub on 11-24-2022 Urea nitrogen [Mass/Vol] 24 mg/dL 7-25 [facility] WBC Auto (Bld) [#/Vol]Ordere d By: Jeffrey Ayoub on 11-24-2022 WBC (Bld) [#/Vol] 6.8 10*3/uL 4.1-10.5 [facility] Office Visit (Cardiology)on 11-23-2022 Follow-up visit Diagnoses/Problems Assessed Heart burn (787.1) (R12) History of PTCA (V45.82) (Z98.61) Angina pectoris (413.9) (I20.9) Atherosclerosis of coronary artery (414.00) (I25.10) Diabetes mellitus (250.00) (E11.9) Hyperlipidemia (272.4) (E78.5) Essential hypertension (401.9) (I10) Morbid obesity with BMI of 40.0-44.9, adult (278.01,V85.41) (E66.01,Z68.41) Never a smoker Orders Angina pectoris, Atherosclerosis of coronary artery, History of PTCA Start: Clopidogrel Bisulfate 75 MG Oral Tablet (Plavix); take 4 tablets the first dose equaling 300mg, then take 1 tablet daily equaling 75 mgs Cardiac Catherization; Status:Active - Retrospective Authorization; Requested for:23Nov2022; Atherosclerosis of coronary artery Changed: From Aspirin EC 81 MG TBEC TAKE 1 TABLET DAILY To Aspirin 81 MG Oral Tablet Delayed Release TAKE 1 TABLET DAILY Morbid obesity with BMI of 40.0-44.9, adult Healthy Weight Tips; Status:Complete - Retrospective Authorization; Done: 23Nov2022 Some eating tips that can help you lose weight.; Status:Complete - Retrospective Authorization; Done: 23Nov2022 SocHx: Never a smoker Tobacco Use Screening; Status:Complete; Done: 23Nov2022 Patient Instructions Please bring all medicines, vitamins, and herbal supplements with you when you come to the office. Prescriptions will not be filled unless you are compliant with your follow up appointments or have a follow up appointment scheduled as per instruction of your physician. Refills should be requested at the time of your visit. Insulin take 1/2 dose of insulin the morning of procedure. plavix 400 mg first day then 75 mgs 1 tablet after. Follow-up after testing completed Chief Complaint APRIL CARLIN is being seen for new onset angina. 57-year-old gentleman returns for early follow-up with new onset angina over the past 3 weeks, use nitroglycerin several times as well as a nitro patch even had breakthrough angina on the Nitropatch this past couple weeks and now has angina at rest, with relief with nitroglycerin. He also has exertional dyspnea. He has 1/4 acre of lawn to cut that used to take him only 20 minutes to perform now takes him over an hour to perform because of exertional dyspnea This represents likely in-stent restenosis or progressive disease He has a history of PCI of the proximal and mid LAD in August 2018, and previous PCI of the RCA remotely.. Upon last year's office visit he was performing 13,000 steps daily and even more recently in August he and his did 300,000 step challenge over that month successfully. His symptoms only started 3 weeks ago. He has underlying diabetes mellitus, obesity, essential hypertension, hyperlipidemia and remains on appropriate GDMT including nitrates Recommendations, proceed with urgent left heart cath and possible revascularization, risk, benefits, alternatives, have been discussed with him and the patient for over 30 minutes this morning will initiate clopidogrel upstream with a bolus, will see him in the Change Control Manager Monday morning. Active Problems Problems Angina pectoris (413.9) (I20.9) Atherosclerosis of coronary artery (414.00) (I25.10) Diabetes mellitus (250.00) (E11.9) Encounter for immunization (V03.89) (Z23) Essential hypertension (401.9) (I10) History of PTCA (V45.82) (Z98.61) Hyperlipidemia (272.4) (E78.5) Morbid obesity with BMI of 40.0-44.9, adult (278.01,V85.41) (E66.01,Z68.41) Never a smoker Surgical History Problems History of Appendectomy History of Complete colonoscopy PROCEDURE DATE October 2021 History of Percutaneous transluminal coronary angioplasty History of Trigger finger repair Current Meds Medication NameInstruction amLODIPine Besylate 5 MG Oral TabletTAKE 1 TABLET DAILY. Aspirin EC 81 MG TBECTAKE 1 TABLET DAILY. Atorvastatin Calcium 80 MG Oral TabletTAKE 1 TABLET AT BEDTIME. HumuLIN 70/30 KwikPen (70-30) 100 UNIT/ML Subcutaneous Suspension Pen-injectorinject as directed Jardiance 25 MG Oral Tablet1/2 tablet daily Lisinopril 40 MG Oral TabletTAKE 1 TABLET DAILY. Metoprolol Succinate ER 50 MG Oral Tablet Extended Release 24 HourTAKE 1 TABLET DAILY. Nitroglycerin 0.2 MG/HR Transdermal Patch 24 HourAPPLY PATCH FOR 12 TO 14 HOURS DAILY, THEN REMOVE Nitroglycerin 0.4 [address] Tablet SublingualPL[address] 1 TABLET UNDER THE TONGUE EVERY 5 MINUTES FOR UP TO 3 DOSES NEEDED FOR CHEST PAIN.CALL 911 IF PAIN PERSISTS. Tresiba 100 UNIT/ML Subcutaneous Solutionas directed Verbally updated medication list with Patient. Patient did not bring medication bottles or list. Long Melendez MA Allergies Medication No Known Drug Allergies Recorded By: Blank Verduzco; 05/04/2021 11:43:22 AM Family History Mother Family history of bundle branch block (V17.49) (Z82.49) Family history of Irregular heartbeat Father Family history of malignant neoplasm of prostate (V16.42) (Z80.42) Social History Problems Caffeine use (V49.89) (Z78.9) COFFEE 3 CUPS D (more content not included)... Normal Team Apart Tobacco Screening.on 023 Adult depression screening assessment No [facility] Pricing Assistant 250 DO Work Phone: Fall risk assessment a) No falls within the last year [facility] Pricing Assistant 250 DO Work Phone: Tobacco use status [facility]PH[facility] b) No [facility] Pricing Assistant 250 DO Work Phone: CBC AUTO DIFFon 05-25-2022 BASO # 0.1 103/ul Normal 0.0-0.1 [facility] Comment on above: Performed By: #### C BC #### [facility] [address] [address] [address] Deshawn Canales Basophils/100 WBC (Bld) 0.6 % Normal 0.2-2.0 [facility] Comment on above: Performed By: #### C BC #### [facility] [address] [place] [address] Dr. Deshawn Canales EO # 0.1 103/ul Normal 0.0-0.7 [facility] Comment on above: Performed By: #### C BC #### [facility] [address] [place] [address] Dr. Deshawn Canales Eosinophils/100 WBC (Bld) 1.5 % Normal 0.9-7.0 [facility] Comment on above: Performed By: #### C BC #### [facility] [address] [place] [address] Dr. Deshawn Canales Erythrocyte distribution width (RBC) [Ratio] 13.2 % Normal 11.0-15.0 [facility] Comment on above: Performed By: #### C BC #### [facility] [address] [place] [address] Dr. Deshawn Canales Hematocrit (Bld) [Volume fraction] 48.8 % Normal 42.0-54.0 [facility] Comment on above: Performed By: #### C BC #### [facility] [address] [place] [address] Dr. Deshawn Canales Hemoglobin (Bld) [Mass/Vol] 16.1 g/dL Normal 14.0-18.0 [facility] Comment on above: Performed By: #### C BC #### [facility] [address] [place] [address] Dr. Deshawn Canales IG # 0.02 10e3/ul Normal 0.00-0.03 [facility] Comment on above: Performed By: #### C BC #### [facility] [address] [place] [address] Dr. Deshawn Canales IG % 0.3 % Normal 0.0-0.5 [facility] Comment on above: Performed By: #### C BC #### [facility] [address] [place] [address] Dr. Deshawn Canales LYMPH # 1.6 103/ul Normal 1.2-3.8 [facility] Comment on above: Performed By: #### C BC #### [facility] [address] [place] [address] Dr. Deshawn Canales Lymphocytes/100 WBC (Bld) 20.5 % Normal 20.5-60.0 [facility] Comment on above: Performed By: #### C BC #### [facility] [address] [place] [address] Dr. Deshawn Canales MANUAL DIFF REQ NO Normal [facility] Comment on above: Performed By: #### C BC #### [facility] [address] [place] [address] Dr. Deshawn Canales MCH (RBC) [Entitic mass] 27.8 pg Normal 25.9-34.0 [facility] Comment on above: Performed By: #### C BC #### [facility] [address] [place] [address] Dr. Deshawn Canales MCHC (RBC) [Mass/Vol] 33.0 g/dL Normal 29.9-35.2 [facility] Comment on above: Performed By: #### C BC #### [facility] [address] [place] [address] Dr. Deshawn Canales MCV (RBC) [Entitic vol] 84.3 fL Normal 80.0-94.0 [facility] Comment on above: Performed By: #### C BC #### [facility] [address] [place] [address] Dr. Deshawn Canales MONO # 0.5 103/ul Normal 0.3-0.8 [facility] Comment on above: Performed By: #### C BC #### [facility] [address] [place] [address] Dr. Deshawn Canales Monocytes/100 WBC (Bld) 6.8 % Normal 1.7-12.0 [facility] Comment on above: Performed By: #### C BC #### [facility] [address] [place] [address] Dr. Deshawn Canales NEUT # 5.5 103/ul Normal 1.4-6.5 [facility] Comment on above: Performed By: #### C BC #### [facility] [address] [place] [address] Dr. Deshawn Canales Neutrophils/100 WBC (Bld) 70.3 % Normal 43.0-75.0 [facility] Comment on above: Performed By: #### C BC #### [facility] [address] [place] [address] Dr. Deshawn Canales Platelet mean volume (Bld) [Entitic vol] 10.5 fL Normal 9.5-13.5 [facility] Comment on above: Performed By: #### C BC #### [facility] [address] [place] [address] Dr. Deshawn Canales PLT 241 103/ul Normal 150-450 [facility] Comment on above: Performed By: #### C BC #### [facility] [address] [place] [address] Dr. Deshawn Canales RBC 5.79 106/ul Normal 4.70-6.10 [facility] Comment on above: Performed By: #### C BC #### [facility] [address] [place] [address] Dr. Deshawn Canales WBC 7.8 103/ul Normal 4.0-11.0 [facility] Comment on above: Performed By: #### C BC #### [facility] [address] [place] [address] Dr. Deshawn Canales PROF 14(COMP METB)on 022 Albumin [Mass/Vol] 3.6 g/dL Normal 3.4-5.0 [facility] Comment on above: Performed By: #### C MP #### [facility] [address] [place] [address] Dr. Deshawn Canales Albumin/Globulin [Mass ratio] 1.2 {ratio} Normal [facility] Comment on above: Performed By: #### C MP #### [facility] [address] [place] [address] Dr. Deshawn Canales ALP [Catalytic activity/Vol] 121 U/L Critically high 46-116 [facility] Comment on above: Performed By: #### C MP #### [facility] [address] [address] [address] Deshawn Canales ALT [Catalytic activity/Vol] 35 U/L Normal 16-63 [facility] Comment on above: Performed By: #### C MP #### [facility] [address] [address] [address] Deshawn Canales Anion gap [Moles/Vol] 11.4 mmol/L Normal Th [facility] Comment on above: Performed By: #### C MP #### [facility] [address] [address] [address] Deshawn Canales AST [Catalytic activity/Vol] 21 U/L Normal 15-37 [facility] Comment on above: Performed By: #### C MP #### [facility] [address] [place] [address] Dr. Deshawn Canales Bilirubin [Mass/Vol] 0.5 mg/dL Normal 0.2-1.0 [facility] Comment on above: Performed By: #### C MP #### [facility] [address] [place] [address] Dr. Deshawn Canales Calcium [Mass/Vol] 8.7 mg/dL Normal 8.5-10.1 [facility] Comment on above: Performed By: #### C MP #### [facility] [address] [place] [address] Dr. Deshawn Canales Chloride [Moles/Vol] 102 mmol/L Normal 98-107 [facility] Comment on above: Performed By: #### C MP #### [facility] [address] [place] [address] Dr. Deshawn Canales CO2 [Moles/Vol] 30.8 mmol/L Normal 21.0-32.0 [facility] Comment on above: Performed By: #### C MP #### [facility] [address] [place] [address] Dr. Deshawn Canales Creatinine [Mass/Vol] 0.82 mg/dL Normal 0.70-1.30 [facility] Comment on above: Performed By: #### C MP #### [facility] [address] [place], [place] [id number] Dr. Deshawn Canales EGFR-AF BAHRAINI >60 Normal >=60 [facility] Comment on above: Performed By: #### C MP #### [facility] [address] [place] [address] Dr. Deshawn Canales EGFR-NON AF BAHRAINI >60 Normal >=60 [facility] Comment on above: Performed By: #### C MP #### [facility] [address] [place] [address] Dr. Deshawn Canales Globulin (S) [Mass/Vol] 3.1 g/dL Normal [facility] Comment on above: Performed By: #### C MP #### [facility] [address] [place] [address] Dr. Deshawn Canales Glucose [Mass/Vol] 139 mg/dL Critically high 74-106 [facility] Comment on above: Performed By: #### C MP #### [facility] [address] [place] [address] Dr. Deshawn Canales Potassium [Moles/Vol] 4.2 mmol/L Normal 3.5-5.1 [facility] Comment on above: Performed By: #### C MP #### [facility] [address] [place] [address] Dr. Deshawn Canales Protein [Mass/Vol] 6.7 g/dL Normal 6.4-8.2 [facility] Comment on above: Performed By: #### C MP #### [facility] [address] [place] [address] Dr. Deshawn Canales Sodium [Moles/Vol] 140 mmol/L Normal 136-145 [facility] Comment on above: Performed By: #### C MP #### [facility] [address] [place] [address] Dr. Deshawn Canales Urea nitrogen [Mass/Vol] 17.0 mg/dL Normal 7.0-18.0 [facility] Comment on above: Performed By: #### C MP #### [facility] [address] [place] [address] Dr. Deshawn Canales Urea nitrogen/Creatinine [Mass ratio] 20.7 mg/mg Normal [facility] Comment on above: Performed By: #### C MP #### [facility] [address] [address] [address] Deshawn Canales HS-CRPon 05-07-2022 HS-CRP 3.95 mg/L Critically high <=3.00 [facility] Comment on above: Performed By: #### H SCRPT, LIPID #### [facility] [address] [address] [address] Deshawn Canales LIPID PROFILEon 05-07-2022 CHOL-HDL RATIO NORM SEE BELOW Normal [facility] Comment on above: Result Comment: 3.3 - 4.4 LOW RISK 4.4 - 7.1 AVERAGE RISK 7.1 - 11.0 MODERATE RISK >11.0 HIGH RISK Performed By: #### H SCRPT, LIPID #### [facility] [address] [address] [address] Deshawn Canales Cholesterol [Mass/Vol] 141 mg/dL Normal <=200 Th [facility] Comment on above: Performed By: #### H SCRPT, LIPID #### [facility] [address] [address] [address] Deshawn Canales Cholesterol in HDL [Mass/Vol] 45 mg/dL Normal 40-60 [facility] Comment on above: Performed By: #### H SCRPT, LIPID #### [facility] [address] [address] [address] Deshawn Canales Cholesterol in LDL [Mass/Vol] 84.0 mg/dL Normal [facility] Comment on above: Performed By: #### H SCRPT, LIPID #### [facility] [address] [address] [address] Deshawn Canales Cholesterol.total/Chol esterol in HDL [Mass ratio] 3.1 {ratio} Normal [facility] Comment on above: Performed By: #### H SCRPT, LIPID #### [facility] [address] [address] [address] Deshawn Canales HDL NORMAL > or = 60 mg/dl - LO W CARDIOVASCULAR RISK <40 mg/dl - HIGH CARDIOVASCULAR RISK Normal [facility] Comment on above: Performed By: #### H SCRPT, LIPID #### [facility] [address] [address] [address] Deshawn Canales LDL CALC NORMAL SEE BELOW Normal [facility] Comment on above: Result Comment: <100 mg/dl OPTIMAL 100 - 129 mg/dl NEAR OR ABOVE OPTIMAL 130 - 159 mg/dl BORDERLINE HIGH 160 - 189 mg/dl HIGH >190 mg/dl VERY HIGH Performed By: #### H SCRPT, LIPID #### [facility] [address] [address] [address] Deshawn Canales Triglyceride [Mass/Vol] 60 mg/dL Normal <=150 [facility] Comment on above: Performed By: #### H SCRPT, LIPID #### [facility] [address] [address] [address] Deshawn Canales VLDL CALC 12.0 mg/dL Normal [facility] Comment on above: Performed By: #### H SCRPT, LIPID #### [facility] [address] [address] [address] Deshawn Canales Office Visit (Cardiology)on 05-04-2022 Follow-up visit Diagnoses/Problems Assessed Atherosclerosis of coronary artery (414.00) (I25.10) History of PTCA (V45.82) (Z98.61) Diabetes mellitus (250.00) (E11.9) Essential hypertension (401.9) (I10) Hyperlipidemia (272.4) (E78.5) Morbid obesity with BMI of 40.0-44.9, adult (278.01,V85.41) (E66.01,Z68.41) Never a smoker Orders Atherosclerosis of coronary artery Start: Aspirin EC 81 MG Oral Tablet Delayed Release; TAKE 1 TABLET DAILY Atherosclerosis of coronary artery, Diabetes mellitus, Essential hypertension Renew: Lisinopril 40 MG Oral Tablet; TAKE 1 TABLET DAILY Atherosclerosis of coronary artery, Diabetes mellitus, Health Maintenance, Essential hypertension, History of PTCA, Hyperlipidemia, Morbid obesity with BMI of 40.0-44.9, adult CRP, High Sensitivity; Status:Active - Retrospective Authorization; Requested for:[id number]; Atherosclerosis of coronary artery, Hyperlipidemia Renew: Atorvastatin Calcium 80 MG Oral Tablet; TAKE 1 TABLET AT BEDTIME Hyperlipidemia Lipid Panel; Status:Active - Retrospective Authorization; Requested for:[id number]; Morbid obesity with BMI of 40.0-44.9, adult Healthy Weight Tips; Status:Complete - Retrospective Authorization; Done: [id number] Some eating tips that can help you lose weight.; Status:Complete - Retrospective Authorization; Done: [id number] SocHx: Never a smoker Tobacco Use Screening; Status:Complete; Done: [id number] Patient Instructions Please bring all medicines, vitamins, and herbal supplements with you when you come to the office. Prescriptions will not be filled unless you are compliant with your follow up appointments or have a follow up appointment scheduled as per instruction of your physician. Refills should be requested at the time of your visit. Follow up in 1 year. Chief Complaint APRIL CARLIN is being seen for an annual follow-up of. 56-year-old gentleman returns for follow-up he is doing well he has no cardiovascular complaints. He is getting anywhere between 8000 and 13,000 steps in per day with no angina, nitrate usage or recurrent cardiac events or symptoms. He has had previous PCI of the LAD 2019 has persistent obesity and diabetes and remains on appropriate guideline directed medical therapies as reviewed Recommendations: Obtain lipid panel, high-sensitivity CRP, will follow-up in 1 year Surgical History Problems History of Appendectomy History of Complete colonoscopy PROCEDURE DATE October 2021 History of Percutaneous transluminal coronary angioplasty History of Trigger finger repair Current Meds Medication NameInstruction amLODIPine Besylate 5 MG Oral TabletTAKE 1 TABLET DAILY. Atorvastatin Calcium 80 MG Oral TabletTAKE 1 TABLET AT BEDTIME. Insulin Lispro 100 UNIT/ML SOLNUSE DIRECTED. Jardiance 25 MG Oral Tablet1/2 tablet daily Lisinopril 40 MG Oral TabletTAKE 1 TABLET DAILY. Metoprolol Succinate ER 50 MG Oral Tablet Extended Release 24 HourTAKE 1 TABLET DAILY. Tresiba 100 UNIT/ML Subcutaneous Solutionas directed Patient did not bring medication list or bottles. Updated verbally with patient Allergies Medication No Known Drug Allergies Recorded By: Blank Verduzco; 05/04/2021 11:43:22 AM Social History Problems Caffeine use (V49.89) (Z78.9) COFFEE 3 CUPS DAILY, RARE SODA Never a smoker No illicit drug use Occasional alcohol use Review of Systems Constitutional: not feeling tired. Cardiovascular: no intermittent leg claudication and as noted in HPI. Respiratory: no cough and no shortness of breath. Gastrointestinal: no change in bowel habits and no blood in stools. Integumentary: no skin rashes. Neurological: no seizures and no frequent falls. All other systems have been reviewed and are negative for complaint. Vitals Vital Signs Recorded: 04May2022 11:26AM Heart Rate74, R Radial Hhzveznm679, LUE, Sitting Wlkoarynx17, LUE, Sitting Height5 ft 10 in Wegcia457 lb BMI Jvrlvlrxuf47.89 kg/m2 BSA Calculated2.43 Tobacco Useb) No PHQ-2 #1. Over the last 2 weeks have you felt down, depressed or hopeless? (If yes, answer PHQ-9 below)No PHQ-2 #2. Over the last 2 weeks have you felt little interest or pleasure in doing things? (If yes, answer PHQ-9 below)No Signatures Electronically signed by : Adriel Ayoub DO; May 04 2022 1:18PM EST (Author) Normal Team Apart Tobacco Screening.on 022 Adult depression screening assessment No [employer] [facility] [employer]DISKOV[employer]u nay 250 DO Work Phone: Tobacco use status CPHS b) No [employer]-DISKOVReu nay 250 DO Work Phone: XR CSPINE OBL FLEX_EXTon XR CSPINE OBL FLEX_EXT EXAMINATION: XR C SPINE OBL FLEX_EXT HISTORY: Radiculopathy due to cervical spondylosis COMPARISON: No relevant comparison available. FINDINGS: BONES: Neutral projection demonstrates normal alignment with no acute fracture or spondylolisthesis. Mild spondylosis and facet osteoarthropathy DISC SPACES: Normal. No significant disc height narrowing, subluxation, or endplate abnormality. PARASPINOUS: Negative. No paraspinous abnormality is seen. OTHER: C7 is not seen on the lateral projection. No transient spondylolisthesis with flexion or extension IMPRESSION: Mild degenerative changes No dynamic instability Electronically authenticated by: CASEY NGUYEN Date: 2022-03-28 07:58 Normal [facility] Glucose Glucometer (dC) [M ass/Vol]Ordered By: Vinicio España on 03-24-2022 Glucose [Mass/Vol] 117 mg/dL [facility] Comment on above: Random Glucose Refer ence Range is dependent on time and content of last meal. Glucose of more than 200 mg/dL in a nonstressed, ambulatory subject supports the diagnosis of Diabetes Mellitus. Glucose Poct Glucometerson 1 Glucose [Mass/Vol] 117 mg/dL Normal [facility] Comment on above: Result Comment: [place] Glucose Reference Range is dependent on time and content of last meal. Glucose of more than 200 mg/dL in a nonstressed, ambulatory subject supports the diagnosis of Diabetes Mellitus. PERFORMED BY: [place] [address] PATHOLOGIST T[employer]IS [employer]ALL [employer]ER HAND KRUPA WILCOX M.D. Performed By: #### C BC, CMP #### [address] Albumin [Mass/volume] in Ser um or PlasmaOrdered By: Vinicio España on 03-22-2022 Albumin [Mass/Vol] 3.8 g/dL 3.2-5.5 [facility] Basophils Auto (Bld) [#/Vol] Ordered By: Vinicio España on 03-22-2022 Basophils (Bld) [#/Vol] 0.1 10*3/uL 0.0-0.2 [facility] Basophils/100 WBC Auto (Bld) Ordered By: Vinicio España on 03-22-2022 Basophils/100 WBC (Bld) 0.8 % . [facility] COVID-19 FRMCon 03-22-2022 SARS-CoV-2 (COVID-19) RNA LUZMARIA+probe Ql (Unsp spec) Negative Normal Negative [facility] Comment on above: Order Comment: PT IS NON FASTING Reason for Exam Trigger middle finger of right hand;Pre-op examination Result Comment: Testing for SARS-CoV-2 by RT-PCR This test was developed and its performance characteristics determined by [facility] ([place]) and validated at the [facility]. This test has not been FDA cleared or approved. This test has been authorized by FDA under an Emergency Use Authorization (EUA). This test has been validated in accordance with the FDA's Guidance Document (Policy for Diagnostics Testing in Laboratories Certified to Perform High Complexity Testing under CLIA prior to Emergency Use Authorization for Coronavirus Disease-2019 during the Public Health Emergency) issued on August 29, 2019. This test is only authorized for the duration of time the declaration that circumstances exist justifying the authorization of the emergency use of in vitro diagnostic tests for detection of SARS-CoV-2 virus and/or diagnosis of COVID-19 infection under section 564(b)(1) of the Act, 21 U.S.C. 360bbb-3(b)(1), unless the authorization is terminated or revoked sooner. PERFORMED BY: [place] [address] PATHOLOGIST TENNIS [employer] C[employer]ER HAND KRUPA WILCOX M.D. Performed By: #### C BC, CMP #### [address] COVID-19 Positive/NegativeOr dered By: Vinicio España on 03-22-2022 SARS-CoV-2 (COVID-19) N gene LUZMARIA+probe Ql (Resp) Negative Negative [facility] Comment on above: Testing for SARS-CoV -2 by RT-PCRThis test was developed and its performance characteristics determined by [employer] (Dispatch) and validated at the [facility]. This test has not been FDA cleared or approved. This test has been authorized by FDA under an Emergency Use Authorization (EUA). This test has been validated in accordance with the FDA's Guidance Document (Policy for Diagnostics Testing in Laboratories Certified to Perform High Complexity Testing under CLIA prior to Emergency Use Authorization for Coronavirus Disease-2019 during the Public Health Emergency) issued on August 29, 2019. This test is only authorized for the duration of time the declaration that circumstances exist justifying the authorization of the emergency use of in vitro diagnostic tests for detection of SARS-CoV-2 virus and/or diagnosis of COVID-19 infection under section 564(b)(1) of the Act, 21 U.S.C. 360bbb-3(b)(1), unless the authorization is terminated or revoked sooner. Complete Blood Count Auto Di ffon 03-22-2022 Basophils (Bld) [#/Vol] 0.1 10*3/uL Normal 0.0-0.2 [facility] Comment on above: Order Comment: Reaso n for Exam Trigger middle finger of right hand;Pre-op examination Result Comment: PERF ORMED BY: [place] [address] PATHOLOGIST [employer] HAND KRUPA WILCOX M.D. Performed By: #### C BC, CMP #### [address] Basophils/100 WBC (Bld) 0.8 % Normal . [facility] Comment on above: Order Comment: Reaso n for Exam Trigger middle finger of right hand;Pre-op examination Performed By: #### C BC, CMP #### [address] Eosinophils (Bld) [#/Vol] 0.1 10*3/uL Normal 0.0-0.45 [facility] Comment on above: Order Comment: Reaso n for Exam Trigger middle finger of right hand;Pre-op examination Performed By: #### C BC, CMP #### [address] Eosinophils/100 WBC (Bld) 2.1 % Normal . [facility] Comment on above: Order Comment: Reaso n for Exam Trigger middle finger of right hand;Pre-op examination Performed By: #### C BC, CMP #### [address] Erythrocyte distribution width (RBC) [Ratio] 14.4 % Normal 12.0-14.8 [facility] Comment on above: Order Comment: Reaso n for Exam Trigger middle finger of right hand;Pre-op examination Performed By: #### C BC, CMP #### [address] Hematocrit (Bld) [Volume fraction] 48.7 % Normal 38.8-50.0 [facility] Comment on above: Order Comment: Reaso n for Exam Trigger middle finger of right hand;Pre-op examination Performed By: #### C BC, CMP #### [place] [address] [place] Hemoglobin (Bld) [Mass/Vol] 16.1 g/dL Normal 13.0-17.0 [facility] Comment on above: Order Comment: Reaso n for Exam Trigger middle finger of right hand;Pre-op examination Performed By: #### C BC, CMP #### [address] Lymphocytes (Bld) [#/Vol] 1.3 10*3/uL Normal 1.00-4.8 [facility] Comment on above: Order Comment: Reaso n for Exam Trigger middle finger of right hand;Pre-op examination Performed By: #### C BC, CMP #### [address] Lymphocytes/100 WBC (Bld) 19.5 % Normal . [facility] Comment on above: Order Comment: Reaso n for Exam Trigger middle finger of right hand;Pre-op examination Performed By: #### C BC, CMP #### [address] MCH (RBC) [Entitic mass] 28.0 pg Normal 27.5-35.2 [facility] Comment on above: Order Comment: Reaso n for Exam Trigger middle finger of right hand;Pre-op examination Performed By: #### C BC, CMP #### [address] MCV (RBC) [Entitic vol] 84.4 fL Normal 83.5-101 [facility] Comment on above: Order Comment: Reaso n for Exam Trigger middle finger of right hand;Pre-op examination Performed By: #### C BC, CMP #### [address] Mean Corpuscular HGB Conc 33.2 g/dL Normal 32.5-35.6 [facility] Comment on above: Order Comment: Reaso n for Exam Trigger middle finger of right hand;Pre-op examination Performed By: #### C BC, CMP #### [address] Monocytes (Bld) [#/Vol] 0.4 10*3/uL Normal 0.0-0.8 [facility] Comment on above: Order Comment: Reaso n for Exam Trigger middle finger of right hand;Pre-op examination Performed By: #### C BC, CMP #### [facility] [address] [place] [address] [place] Monocytes/100 WBC (Bld) 6.3 % Normal . [facility] Comment on above: Order Comment: Reaso n for Exam Trigger middle finger of right hand;Pre-op examination Performed By: #### C BC, CMP #### [facility] [address] [place] [address] [place] Neutrophils (Bld) [#/Vol] 4.7 10*3/uL Normal 1.8-7.7 [facility] Comment on above: Order Comment: Reaso n for Exam Trigger middle finger of right hand;Pre-op examination Performed By: #### C BC, CMP #### [facility] [address] [place] [address] [place] Neutrophils/100 WBC (Bld) 71.3 % Normal . [facility] Comment on above: Order Comment: Reaso n for Exam Trigger middle finger of right hand;Pre-op examination Performed By: #### C BC, CMP #### [facility] [address] [place] [address] [place] Nucleated RBC/100 WBC (Bld) [Ratio] 0.2 % Normal 0-0.5 [facility] Comment on above: Order Comment: Reaso n for Exam Trigger middle finger of right hand;Pre-op examination Performed By: #### C BC, CMP #### [facility] [address] [place] [address] [place] Platelet mean volume (Bld) [Entitic vol] 9.4 fL Normal 6.6-10.1 [facility] Comment on above: Order Comment: Reaso n for Exam Trigger middle finger of right hand;Pre-op examination Performed By: #### C BC, CMP #### [facility] [address] [id number] [place] Platelets (Bld) [#/Vol] 272 10*3/uL Normal 150-450 [facility] Comment on above: Order Comment: Reaso n for Exam Trigger middle finger of right hand;Pre-op examination Performed By: #### C BC, CMP #### [address] RBC (Bld) [#/Vol] 5.77 10*6/uL High 3.90-5.60 [facility] Comment on above: Order Comment: Reaso n for Exam Trigger middle finger of right hand;Pre-op examination Performed By: #### C BC, CMP #### [facility] [address] WBC (Bld) [#/Vol] 6.6 10*3/uL Normal 4.5-11.0 [facility] Comment on above: Order Comment: Reaso n for Exam Trigger middle finger of right hand;Pre-op examination Performed By: #### C BC, CMP #### [address] Comprehensive Metabolic Pane rhonda 03-22-2022 Albumin [Mass/Vol] 3.8 g/dL Normal 3.2-5.5 [facility] Comment on above: Order Comment: PT IS NON FASTING Reason for Exam Trigger middle finger of right hand;Pre-op examination Performed By: #### C BC, CMP #### [address] Albumin/Globulin [Mass ratio] 1.6 {ratio} Normal [facility] Comment on above: Order Comment: PT IS NON FASTING Reason for Exam Trigger middle finger of right hand;Pre-op examination Performed By: #### C BC, CMP #### [address] ALP [Catalytic activity/Vol] 115 U/L High 32-92 [facility] Comment on above: Order Comment: PT IS NON FASTING Reason for Exam Trigger middle finger of right hand;Pre-op examination Result Comment: PERF ORMED BY: [place] [address] PATHOLOGIST [employer] HAND KRUPA WILCOX M.D. Performed By: #### C BC, CMP #### [address] [place] [address] [place] ALT [Catalytic activity/Vol] 24 U/L Normal 10-60 [facility] Comment on above: Order Comment: PT IS NON FASTING Reason for Exam Trigger middle finger of right hand;Pre-op examination Performed By: #### C BC, CMP #### [facility] [address] Anion gap [Moles/Vol] 15.0 mmol/L Normal 6.0-15.0 [facility] Comment on above: Order Comment: PT IS NON FASTING Reason for Exam Trigger middle finger of right hand;Pre-op examination Performed By: #### C BC, CMP #### [address] AST [Catalytic activity/Vol] 18 U/L Normal 10-42 [facility] Comment on above: Order Comment: PT IS NON FASTING Reason for Exam Trigger middle finger of right hand;Pre-op examination Performed By: #### C BC, CMP #### [address] Bilirubin [Mass/Vol] 0.9 mg/dL Normal 0.3-1.2 [facility] Comment on above: Order Comment: PT IS NON FASTING Reason for Exam Trigger middle finger of right hand;Pre-op examination Performed By: #### C BC, CMP #### [address] Calcium [Mass/Vol] 9.3 mg/dL Normal 8.2-10.2 [facility] Comment on above: Order Comment: PT IS NON FASTING Reason for Exam Trigger middle finger of right hand;Pre-op examination Performed By: #### C BC, CMP #### [facility] [address] [place] [address] [place] Chloride [Moles/Vol] 99 mmol/L Normal 95-114 [facility] Comment on above: Order Comment: PT IS NON FASTING Reason for Exam Trigger middle finger of right hand;Pre-op examination Performed By: #### C BC, CMP #### [place] [address] [place] CO2 [Moles/Vol] 25.4 mmol/L Normal 22.0-30.0 [facility] Comment on above: Order Comment: PT IS NON FASTING Reason for Exam Trigger middle finger of right hand;Pre-op examination Performed By: #### C BC, CMP #### [facility] [address] Creatinine [Mass/Vol] 0.97 mg/dL Normal 0.64-1.27 [facility] Comment on above: Order Comment: PT IS NON FASTING Reason for Exam Trigger middle finger of right hand;Pre-op examination Performed By: #### C BC, CMP #### [facility] [address] Estimated GFR ( [place] > 60 [facility] Comment on above: Order Comment: PT IS NON FASTING Reason for Exam Trigger middle finger of right hand;Pre-op examination Result Comment: GFR estimated reference range: According to KDOQI guidelines, <60 ml/min/1.73m2 is sufficient to diagnose a patient with chronic kidney disease. Performed By: #### C BC, CMP #### [facility] [address] Estimated GFR (Non- Am > 60 [facility] Comment on above: Order Comment: PT IS NON FASTING Reason for Exam Trigger middle finger of right hand;Pre-op examination Performed By: #### C BC, CMP #### [facility] [id number] [facility] Globulin (S) [Mass/Vol] 2.4 g/dL [facility] Comment on above: Order Comment: PT IS NON FASTING Reason for Exam Trigger middle finger of right hand;Pre-op examination Performed By: #### C BC, CMP #### [facility] [address] Glucose [Mass/Vol] 135 mg/dL High 70-100 [facility] Comment on above: Order Comment: PT IS NON FASTING Reason for Exam Trigger middle finger of right hand;Pre-op examination Result Comment: [place] Glucose Reference Range is dependent on time and content of last meal. Glucose of more than 200 mg/dL in a nonstressed, ambulatory subject supports the diagnosis of Diabetes Mellitus. ADA recommended reference range Performed By: #### C BC, CMP #### [facility] [address] Potassium [Moles/Vol] 4.4 mmol/L Normal 3.5-5.1 [facility] Comment on above: Order Comment: PT IS NON FASTING Reason for Exam Trigger middle finger of right hand;Pre-op examination Performed By: #### C BC, CMP #### [facility] [address] Protein [Mass/Vol] 6.2 g/dL Normal 6.1-7.9 [facility] Comment on above: Order Comment: PT IS NON FASTING Reason for Exam Trigger middle finger of right hand;Pre-op examination Performed By: #### C BC, CMP #### [facility] [address] Sodium [Moles/Vol] 135 mmol/L Low 136-146 [facility] Comment on above: Order Comment: PT IS NON FASTING Reason for Exam Trigger middle finger of right hand;Pre-op examination Performed By: #### C BC, CMP #### [facility] [address] Urea nitrogen [Mass/Vol] 24 mg/dL High 9-23 [facility] Comment on above: Order Comment: PT IS NON FASTING Reason for Exam Trigger middle finger of right hand;Pre-op examination Performed By: #### C BC, CMP #### [facility] [address] [place] [address] [place] Creatinine and Glomerular fi ltration rate.predicted panel (S/P/Bld)Ordered By: Vinicio España on 03-22-2022 Creatinine [Mass/Vol] 0.97 mg/dL 0.64-1.27 [facility] Eosinophils Auto (Bld) [#/Vo l]Ordered By: Vinicio España on 03-22-2022 Eosinophils (Bld) [#/Vol] 0.1 10*3/uL 0.0-0.45 [facility] Eosinophils/100 WBC Auto (Bl d)Ordered By: Vinicio España on 03-22-2022 Eosinophils/100 WBC (Bld) 2.1 % . [facility] Erythrocyte distribution wid th Auto (RBC) [Ratio]Ordered By: Vinicio España on 03-22-2022 Erythrocyte distribution width (RBC) [Ratio] 14.4 % 12.0-14.8 [facility] Estimated glomerular filtrat ion rate (GFR) non- AmericanOrdered By: Vinicio España on 03-22-2022 GFR/1.73 sq M.predicted among non-blacks MDRD (S/P/Bld) [Vol rate/Area] > 60 mL/Min [facility] Globulin Calc (S) [Mass/Vol] Ordered By: Vinicio España on 03-22-2022 Globulin (S) [Mass/Vol] 2.4 g/dL [facility] Hematocrit Auto (Bld) [Volum e fraction]Ordered By: Vinicio España on 03-22-2022 Hematocrit (Bld) [Volume fraction] 48.7 % 38.8-50.0 [facility] Hemoglobin [Mass/volume] in BloodOrdered By: Vinicio España on 03-22-2022 Hemoglobin (Bld) [Mass/Vol] 16.1 g/dL 13.0-17.0 [facility] - Hematology and Cell countsOrdered By: Vinicio España on 03-22-2022 Nucleated RBC/100 WBC (Bld) [Ratio] 0.2 % 0-0.5 [facility] Leukocytes [#/volume] in Blo od by Automated countOrdered By: Vinicio España on 03-22-2022 WBC (Bld) [#/Vol] 6.6 10*3/uL 4.5-11.0 [facility] Lymphocytes Auto (Bld) [#/Vo l]Ordered By: Vinicio España on 03-22-2022 Lymphocytes (Bld) [#/Vol] 1.3 10*3/uL 1.00-4.8 [facility] Lymphocytes/100 WBC Auto (Bl d)Ordered By: Vinicio España on 03-22-2022 Lymphocytes/100 WBC (Bld) 19.5 % . [facility] MCH Auto (RBC) [Entitic mass ]Ordered By: Vinicio España on 03-22-2022 MCH (RBC) [Entitic mass] 28.0 pg 27.5-35.2 [facility] MCHC Auto (RBC) [Mass/Vol]Or dered By: Vinicio España on 03-22-2022 MCHC (RBC) [Mass/Vol] 33.2 g/dL 32.5-35.6 [facility] MCV Auto (RBC) [Entitic vol] Ordered By: Vinicio España on 03-22-2022 MCV (RBC) [Entitic vol] 84.4 fL 83.5-101 [facility] Monocytes Auto (Bld) [#/Vol] Ordered By: Vinicio España on 03-22-2022 Monocytes (Bld) [#/Vol] 0.4 10*3/uL 0.0-0.8 [facility] Monocytes/100 WBC Auto (Bld) Ordered By: Vinicio España on 03-22-2022 Monocytes/100 WBC (Bld) 6.3 % . [facility] Neutrophils Auto (Bld) [#/Vo l]Ordered By: Vinicio España on 03-22-2022 Neutrophils (Bld) [#/Vol] 4.7 10*3/uL 1.8-7.7 [facility] Neutrophils/100 WBC Auto (Bl d)Ordered By: Vinicio España on 03-22-2022 Neutrophils/100 WBC (Bld) 71.3 % . [facility] No Panel InformationOrdered By: Vinicio España on 03-22-2022 Estimated GFR () > 60 mL/Min [facility] Comment on above: GFR estimated refere nce range: According to KDOQI guidelines, <60 ml/min/1.73m2 is sufficient to diagnose a patient with chronic kidney disease. Pharmacy Creatinine Clearance (Chem N/A [facility] Platelet mean volume Auto (B ld) [Entitic vol]Ordered By: Vinicio España on 03-22-2022 Platelet mean volume (Bld) [Entitic vol] 9.4 fL 6.6-10.1 [facility] Platelets Auto (Bld) [#/Vol] Ordered By: Vinicio España on 03-22-2022 Platelets (Bld) [#/Vol] 272 10*3/uL 150-450 [facility] Protein [Mass/volume] in Ser um or PlasmaOrdered By: Vinicio España on 03-22-2022 Protein [Mass/Vol] 6.2 g/dL 6.1-7.9 [facility] RBC Auto (Bld) [#/Vol]Ordere d By: Vinicio España on 03-22-2022 RBC (Bld) [#/Vol] 5.77 10*6/uL 3.90-5.60 [facility] Serum or plasma alanine carrillo otransferase measurement without P-5'-P (enzymatic activiOrdered By: Vinicio España on 03-22-2022 ALT No additional P-5'-P [Catalytic activity/Vol] 24 U/L [facility] Serum or plasma albumin/glob ulin mass ratioOrdered By: Vinicio España on 03-22-2022 Albumin/Globulin [Mass ratio] 1.6 {ratio} [facility] Serum or plasma alkaline rey sphatase measurement (enzymatic activity/volume)Ordered By: Vinicio España on 03-22-2022 ALP [Catalytic activity/Vol] 115 U/L 3292 [facility] Serum or plasma anion gap de terminationOrdered By: Vinicio España on 03-22-2022 Anion gap [Moles/Vol] 15.0 mmol/L 6.0-15.0 [facility] Serum or plasma aspartate am inotransferase measurement (enzymatic activity/volume)Ordered By: Vinicio España on 03-22-2022 AST [Catalytic activity/Vol] 18 U/L [facility] Serum or plasma calcium jacqueline urement (mass/volume)Ordered By: Vinicio España on 03-22-2022 Calcium [Mass/Vol] 9.3 mg/dL 8.2-10.2 [facility] Serum or plasma chloride susan surement (moles/volume)Ordered By: Vinicio España on 03-22-2022 Chloride [Moles/Vol] 99 mmol/L 95-114 [facility] Serum or plasma glucose jacqueline urement (mass/volume)Ordered By: Vinicio España on 03-22-2022 Glucose [Mass/Vol] 135 mg/dL 70-100 [facility] Comment on above: ADA recommended refe rence rangeRandom Glucose Reference Range is dependent on time and content of last meal. Glucose of more than 200 mg/dL in a nonstressed, ambulatory subject supports the diagnosis of Diabetes Mellitus. Serum or plasma potassium me asurement (moles/volume)Ordered By: Vinicio España on 03-22-2022 Potassium [Moles/Vol] 4.4 mmol/L 3.5-5.1 [facility] Serum or plasma sodium measu rement (moles/volume)Ordered By: Vinicio España on 03-22-2022 Sodium [Moles/Vol] 135 mmol/L 136-146 [facility] Serum or plasma total biliru bin measurement (mass/volume)Ordered By: Vinicio España on 03-22-2022 Bilirubin [Mass/Vol] 0.9 mg/dL 0.3-1.2 [facility] Serum or plasma total carbon dioxide measurement (moles/volume)Ordered By: Vinicio España on 03-22-2022 CO2 [Moles/Vol] 25.4 mmol/L 22.0-30.0 [facility] Serum or plasma urea nitroge n measurement (mass/volume)Ordered By: Vinicio España on 03-22-2022 Urea nitrogen [Mass/Vol] 24 mg/dL 02-18 [facility] CREATININEon 03-14-2022 Creatinine [Mass/Vol] 0.88 mg/dL Normal 0.70-1.30 [facility] Comment on above: Performed By: #### C ALICIA #### [facility] [address] [address] [address] Deshawn Canales EGFR-AF BAHRAINI >60 Normal >=60 [facility] Comment on above: Performed By: #### C ALICIA #### [facility] [address] [address] [address] Deshawn Canales EGFR-NON AF BAHRAINI >60 Normal >=60 [facility] Comment on above: Performed By: #### C ALICIA #### [facility] [address] [address] [address] Deshawn Canales CTA HEAD WO W CONon 03-14-20 CTA HEAD WO W CON EXAMINATION: CTA NEC K WO W CON, CTA HEAD WO W CON HISTORY: Vertebrobasilar artery syndrome COMPARISON: No relevant comparison available. TECHNIQUE: CT imaging of the head following IV administration of non-ionic contrast. Multi-planar/3-D imaging were created to optimize visualization of vascular anatomy. Dose reduction techniques were achieved by using automated exposure control and/or adjustment of mA and/or kV according to patient size and/or use of iterative reconstruction technique. FINDINGS HEAD: VASCULATURE: No significant stenosis. No visible aneurysm or vascular malformation. VENTRICLES: No enlargement or displacement. CEREBRUM: . No excessive atrophy, mass, or hemorrhage, or abnormal enhancement. CEREBELLUM: No excessive atrophy, mass, or hemorrhage, or abnormal enhancement. BRAINSTEM: No excessive atrophy, mass, or hemorrhage, or abnormal enhancement. BASAL CISTERNS: No subarachnoid hemorrhage or effacement. SKULL: Negative. RIGHT INTERNAL CAROTID: No hemodynamically significant stenosis or dissection. EXTERNAL CAROTID: No hemodynamically significant stenosis or dissection. COMMON CAROTID: No hemodynamically significant stenosis or dissection. VERTEBRAL: No hemodynamically significant stenosis or dissection. LEFT INTERNAL CAROTID: No hemodynamically significant stenosis or dissection. EXTERNAL CAROTID: No hemodynamically significant stenosis or dissection. COMMON CAROTID: No hemodynamically significant stenosis or dissection. VERTEBRAL: No hemodynamically significant stenosis or dissection. OTHER: The visualized soft tissues of the neck are also unremarkable. IMPRESSION: 1. No abnormal or suspicious findings to account for patient's symptoms. 2. Normal CT appearance of the brain. Electronically authenticated by: MAGGY WELDON Date: 2022-03-14 16:45 Normal [facility] Glucose Glucometer (dC) [M ass/Vol]Ordered By: Casey Willis on 01-10-2022 Glucose [Mass/Vol] 80 mg/dL [facility] Comment on above: Random Glucose Refer ence Range is dependent on time and content of last meal. Glucose of more than 200 mg/dL in a nonstressed, ambulatory subject supports the diagnosis of Diabetes Mellitus. Glucose Poct Glucometerson 0 01-10-2022 Glucose [Mass/Vol] 80 mg/dL Normal [facility] Comment on above: Result Comment: [place] Glucose Reference Range is dependent on time and content of last meal. Glucose of more than 200 mg/dL in a nonstressed, ambulatory subject supports the diagnosis of Diabetes Mellitus. PERFORMED BY: [facility] [place] [address] PATHOLOGIST [employer] KRUPA WILCOX M.D. Performed By: #### G LULS #### Point of Care testing , COVID-19 SOFIAOrdered By: Kirk Willis on 01-06-2022 SARS-CoV+SARS-CoV-2 (COVID-19) Ag IA.rapid Ql (Resp) Negative Negative [facility] Comment on above: This is a duplicate Paulina SARS Antigen (WALE) result to be used for statistical tracking purpose only. No Panel InformationOrdered By: Casey Willis on 01-06-2022 SARS Antigen (LFIA) [facility] DIRECT LDLon 06-18-2021 Cholesterol in LDL [Mass/Vol] 85 mg/dL Normal [facility] Comment on above: Performed By: #### D LDL #### [facility] [address] [address] [address] Deshawn Canales DLDL NORMAL SEE BELOW Normal [facility] Comment on above: Result Comment: <100 mg/dl OPTIMAL 100 - 129 mg/dl NEAR OR ABOVE OPTIMAL 130 - 159 mg/dl BORDERLINE HIGH 160 - 189 mg/dl HIGH >190 mg/dl VERY HIGH Performed By: #### D LDL #### [facility] [address] [place], [place] [address] Dr. Deshawn Canales Tobacco Screening.on 021 Tobacco use status [facility] b) No -[facility] 250 DO Work Phone: Vital Signs Date Time Vital Sign Value Performing Clinician Facility 08-21-2024 14:53-0400 Body height 177.8 cm [facility] 08-21-2024 14:53-0400 Body mass index (BMI) [Ratio] 41.5 kg/m2 [facility] 08-21-2024 [id number] Body weight 131.22 kg [facility] 08-21-2024 14:53-0400 Diastolic blood pressure 75 mm[Hg] [facility] 08-21-2024 14:53-0400 Heart rate 78 /min [facility] 08-21-2024 14:53-0400 Respiratory rate 12 /min [facility] 08-21-2024 14:53-0400 Systolic blood pressure 134 mm[Hg] [facility] 08-02-2024 08:40-0500 Body height 177.8 cm [facility] 08-02-2024 08:40-0500 Body mass index (BMI) [Ratio] 41.5 kg/m2 [facility] 08-02-2024 08:40-0500 Body weight 131.31 kg [facility] 08-02-2024 08:40-0500 Diastolic blood pressure 71 mm[Hg] [facility] 08-02-2024 08:40-0500 Heart rate 76 /min [facility] 08-02-2024 08:40-0500 Respiratory rate 12 /min [facility] 08-02-2024 08:40-0500 Systolic blood pressure 122 mm[Hg] [facility] 07-05-2024 14:27-0500 Body height 180.3 cm Sonia Petznick DO Work Phone: [facility] 07-05-2024 14:27-0500 Body mass index (BMI) [Ratio] 41.14 kg/m2 Sonia Petznick DO Work Phone: [facility] 07-05-2024 14:27-0500 Body temperature 98.4 [degF] Sonia Petznick DO Work Phone: [facility] 07-05-2024 14:27-0500 Body weight 133.81 kg Sonia Petznick DO Work Phone: [facility] 07-05-2024 14:27-0500 Diastolic blood pressure 64 mm[Hg] Sonia Petznick DO Work Phone: [facility] 07-05-2024 14:27-0500 Heart rate 71 /min Sonia Petznick DO Work Phone: [facility] 07-05-2024 14:27-0500 SaO2% (BldA) [Mass fraction] 95 % Sonia Petznick DO Work Phone: [facility] 07-05-2024 14:27-0500 Systolic blood pressure 126 mm[Hg] Sonia Petznick DO Work Phone: [facility] 03-29-2024 15:29-0400 Body height 180.3 cm Sonia Petznick DO Work Phone: [facility] 03-29-2024 15:29-0400 Body mass index (BMI) [Ratio] 44.16 kg/m2 Sonia Petznick DO Work Phone: [facility] 03-29-2024 15:29-0400 Body temperature 97 [degF] Sonia Petznick DO Work Phone: [facility] 03-29-2024 15:29-0400 Body weight 143.61 kg Sonia Petznick DO Work Phone: [facility] 03-29-2024 15:29-0400 Diastolic blood pressure 64 mm[Hg] Sonia Petznick DO Work Phone: [facility] 03-29-2024 15:29-0400 Heart rate 71 /min Soina Petznick DO Work Phone: [facility] 03-29-2024 15:29-0400 SaO2% (BldA) [Mass fraction] 96 % Sonia Petznick DO Work Phone: [facility] 03-29-2024 15:29-0400 Systolic blood pressure 130 mm[Hg] Sonia Petznick DO Work Phone: [facility] 02-19-2024 14:24-0400 Body mass index (BMI) [Ratio] 44.9 kg/m2 [facility] 02-19-2024 14:24-0400 Body weight 141.97 kg [facility] 02-19-2024 14:24-0400 Diastolic blood pressure 64 mm[Hg] [facility] 02-19-2024 14:24-0400 Systolic blood pressure 136 mm[Hg] [facility] 02-19-2024 12:24-0400 Body height 177.8 cm [facility] 12-29-2022 10:16-0400 Body height 177.8 cm Tye E Ball Work Phone: [facility] 250 DO Work Phone: 12-29-2022 10:16-0400 Body mass index (BMI) [Ratio] 43.88 kg/m2 Tye E Ball Work Phone: [facility] 250 DO Work Phone: 12-29-2022 10:16-0400 Body surface area Derived from formula 2.5 m2 Tye E Ball Work Phone: [facility] 250 DO Work Phone: 12-29-2022 10:16-0400 Body weight 138.71 kg Tye E Ball Work Phone: [facility] 250 DO Work Phone: 12-29-2022 10:16-0400 Diastolic blood pressure 72 mm[Hg] Tye E Ball Work Phone: [facility] 250 DO Work Phone: 12-29-2022 10:16-0400 Heart rate 78 /min Tye E Ball Work Phone: [facility] 250 DO Work Phone: 12-29-2022 10:16-0400 Systolic blood pressure 110 mm[Hg] Tye E Ball Work Phone: [facility] 250 DO Work Phone: 11-25-2022 14:45-0400 Diastolic blood pressure 62 mm[Hg] DO Tye Ball Work Phone: [facility] 11-25-2022 14:45-0400 Respiratory rate 18 /min DO Tye Ball Work Phone: [facility] 11-25-2022 14:45-0400 SaO2% (BldA) [Mass fraction] 97 % DO Tye Ball Work Phone: [facility] 11-25-2022 14:45-0400 Systolic blood pressure 129 mm[Hg] DO Tye Ball Work Phone: [facility] 11-25-2022 14:00-0400 Heart rate 71 /min DO Tye Ball Work Phone: [facility] 11-25-2022 08:58-0400 Body height 177.8 cm DO Tye Ball Work Phone: [facility] 11-25-2022 08:58-0400 Body temperature 97.8 [degF] DO Tye Ball Work Phone: [facility] 11-25-2022 08:58-0400 Body weight 136 kg DO Tye Ball Work Phone: [facility] 11-23-2022 10:42-0400 Body height 177.8 cm Tye Ortega Ball Work Phone: [facility] [employer] 250 DO Work Phone: 11-23-2022 10:42-0400 Body mass index (BMI) [Ratio] 43.33 kg/m2 Tye E Ball Work Phone: [facility] [employer] 250 DO Work Phone: 11-23-2022 10:42-0400 Body surface area Derived from formula 2.49 m2 Tye E Ball Work Phone: [facility] [employer] 250 DO Work Phone: 11-23-2022 10:42-0400 Body weight 136.99 kg Tye E Ball Work Phone: [facility] [employer] 250 DO Work Phone: 11-23-2022 10:42-0400 Diastolic blood pressure 70 mm[Hg] Tye E Ball Work Phone: [facility] [employer] 250 DO Work Phone: 11-23-2022 10:42-0400 Heart rate 60 /min Tye E Ball Work Phone: [facility] 250 DO Work Phone: 11-23-2022 10:42-0400 Systolic blood pressure 120 mm[Hg] Tye E Ball Work Phone: [facility] 250 DO Work Phone: 05-04-2022 11:26-0500 Body height 177.8 cm Tye E Ball Work Phone: [facility] 250 DO Work Phone: 05-04-2022 11:26-0500 Body mass index (BMI) [Ratio] 40.89 kg/m2 Tye E Ball Work Phone: [facility] 250 DO Work Phone: 05-04-2022 11:26-0500 Body surface area Derived from formula 2.43 m2 Tye E Ball Work Phone: [facility] 250 DO Work Phone: 05-04-2022 11:26-0500 Body weight 129.28 kg Tye E Ball Work Phone: [facility] 250 DO Work Phone: 05-04-2022 11:26-0500 Diastolic blood pressure 82 mm[Hg] Tye E Ball Work Phone: [facility] 250 DO Work Phone: 05-04-2022 11:26-0500 Heart rate 74 /min Tye E Ball Work Phone: [facility] 250 DO Work Phone: 05-04-2022 11:26-0500 Systolic blood pressure 136 mm[Hg] Tye E Ball Work Phone: [facility] 250 DO Work Phone: 03-30-2022 09:30-0400 Body height 180.34 cm Vinicio España Other [facility] [employer] Other 03-30-2022 09:30-0400 Body mass index (BMI) [Ratio] 38.77 kg/m2 Vinicio España Other [facility] [employer] Other 03-30-2022 09:30-0400 Body weight 126.1 kg Vinicio España Other [facility] [employer] Other 03-24-2022 13:56-0400 Diastolic blood pressure 72 mm[Hg] DO Tye Ball Work Phone: [facility] 03-24-2022 13:56-0400 Heart rate 76 /min DO Tye Ball Work Phone: [facility] 03-24-2022 13:56-0400 Respiratory rate 16 /min DO Tye Ball Work Phone: [facility] 03-24-2022 13:56-0400 SaO2% (BldA) [Mass fraction] 98 % DO Tye Ball Work Phone: [facility] 03-24-2022 13:56-0400 Systolic blood pressure 132 mm[Hg] DO Tey Ball Work Phone: [facility] 03-24-2022 12:59-0400 Body height 177.8 cm DO Tye Ball Work Phone: [facility] 03-24-2022 12:59-0400 Body mass index (BMI) [Ratio] 39.7 kg/m2 DO Tye Ball Work Phone: [facility] 03-24-2022 12:59-0400 Body weight 125.64 kg DO Tye Ball Work Phone: [facility] 03-24-2022 10:58-0400 Body temperature 98.1 [degF] DO Tye Ball Work Phone: [facility] 03-11-2022 10:00-0400 Body height 180.34 cm Vinicio España Other [employer] Other 03-11-2022 10:00-0400 Body mass index (BMI) [Ratio] 38.77 kg/m2 Vinicio España Other [employer] [facility] [employer] Other 03-11-2022 10:00-0400 Body weight 126.1 kg Vinicio España Other [facility] [employer] Other 01-10-2022 08:03-0400 Diastolic blood pressure 67 mm[Hg] DO Tye Ball Work Phone: [facility] 01-10-2022 08:03-0400 Heart rate 84 /min DO Tye Ball Work Phone: [facility] 01-10-2022 08:03-0400 Respiratory rate 18 /min DO Tye Ball Work Phone: [facility] 01-10-2022 08:03-0400 SaO2% (BldA) [Mass fraction] 99 % DO Tye Ball Work Phone: [facility] 01-10-2022 08:03-0400 Systolic blood pressure 126 mm[Hg] DO Tye Ball Work Phone: [facility] 01-10-2022 06:26-0400 Body height 177.8 cm DO Tye Ball Work Phone: [facility] 01-10-2022 06:26-0400 Body temperature 98.4 [degF] DO Tye Ball Work Phone: [facility] 01-10-2022 06:26-0400 Body weight 127 kg DO Tye Ball Work Phone: [facility] 12-13-2021 11:00-0400 Body height 180.34 cm Vinicio España Other [employer] [facility] [employer] Other 12-13-2021 11:00-0400 Body mass index (BMI) [Ratio] 42.81 kg/m2 Vinicio España Other [employer] Other 12-13-2021 11:00-0400 Body weight 139.26 kg Vinicio España Other [employer] Other 12-06-2021 11:15-0400 Body height 180.34 cm Vinicio España Other [employer] Other 12-06-2021 11:15-0400 Body mass index (BMI) [Ratio] 42.81 kg/m2 Vinicio España Other [employer] Other 12-06-2021 11:15-0400 Body weight 139.26 kg Vinicio España Other [employer] Other 10-18-2021 11:30-0400 Body height 180.34 cm Vinicio España Other [employer] Other 10-18-2021 11:30-0400 Body mass index (BMI) [Ratio] 43.79 kg/m2 Vinicio España Other [employer] Other 10-18-2021 11:30-0400 Body weight 142.43 kg Vinicio España Other [employer] Other 05-04-2021 11:44-0500 Body height 177.8 cm Tye Ortega Ball Work Phone: [facility] [employer] 250 DO Work Phone: 05-04-2021 11:44-0500 Body mass index (BMI) [Ratio] 44.62 kg/m2 Tye Ortega Ball Work Phone: [facility] 250 DO Work Phone: 05-04-2021 11:44-0500 Body surface area Derived from formula 2.52 m2 Tye Shannon Ball Work Phone: [facility] 250 DO Work Phone: 05-04-2021 11:44-0500 Body weight 141.07 kg Tye Ortega Ball Work Phone: [facility] 250 DO Work Phone: 05-04-2021 11:44-0500 Diastolic blood pressure 74 mm[Hg] Tye Ortega Ball Work Phone: [facility] 250 DO Work Phone: 05-04-2021 11:44-0500 Heart rate 72 /min Tye Ortega Ball Work Phone: [facility] 250 DO Work Phone: 05-04-2021 11:44-0500 Systolic blood pressure 132 mm[Hg] Tye Ortega Ball Work Phone: [facility] 250 DO Work Phone: Encounters Encounter Date Encounter Type Care Provider Facility Start: 08-26-2024 End: 08-26-2024 Office outpatient visit 15 minutes Christopher Wylie DPM Work Phone: [facility] Comment on above: Pre-ulcerative callu ses; Left foot pain; Localized edema; Type II diabetes mellitus with neurological manifestations ([facility]); Acquired keratoderma Start: 08-26-2024 End: 08-26-2024 ambulatory CHRISTOPHER WYLIE Not Available Start: 08-26-2024 End: 08-26-2024 Bamboo flowsheet Christopher Wylie DPM Work Phone: [facility] Start: 08-26-2024 End: 08-26-2024 Bamboo flowsheet Christopher Wylie DPM Work Phone: [facility] Start: 08-21-2024 End: 08-21-2024 ambulatory [facility] Work Phone: Start: 08-21-2024 End: 08-21-2024 Patient encounter procedure [facility] Phys[facility] Work Phone: Start: 08-02-2024 End: 08-02-2024 ambulatory [facility] Work Phone: Start: 08-02-2024 End: 08-02-2024 Encounter for general adult medical examination without abnormal findings [facility] Start: 08-02-2024 End: 08-02-2024 Patient encounter procedure [facility] Physician [facility] Work Phone: Start: 07-05-2024 End: 07-05-2024 ambulatory SONIA CARPIO Not Available Start: 07-05-2024 End: 07-05-2024 Office outpatient visit 25 minutes Sonia Carpio DO Work Phone: [phone] Comment on above: Type 2 diabetes sarah itus with peripheral neuropathy (CMS/HCC) (Primary Dx); Type 2 diabetes mellitus with both eyes affected by mild nonproliferative retinopathy without macular edema, with long-term current use of insulin (CMS/HCC); Type 2 diabetes mellitus with other circulatory complications (CMS/HCC); Type 2 diabetes mellitus with other diabetic arthropathy, with long-term current use of insulin (CMS/HCC); Class 3 severe obesity due to excess calories with serious comorbidity and body mass index (BMI) of 40.0 to 44.9 in adult (CMS/HCC) Start: 03-29-2024 End: 03-29-2024 Office outpatient visit 25 minutes Sonia Carpio DO Work Phone: [phone] Comment on above: Type 2 diabetes sarah itus with other circulatory complications (CMS/HCC) (Primary Dx); Type 2 diabetes mellitus with peripheral neuropathy (CMS/HCC); Type 2 diabetes mellitus with other diabetic arthropathy, with long-term current use of insulin (CMS/HCC); Class 3 severe obesity due to excess calories with serious comorbidity and body mass index (BMI) of 40.0 to 44.9 in adult (CMS/[facility]); Type 2 diabetes mellitus with both eyes affected by mild nonproliferative retinopathy without macular edema, with long-term current use of insulin ([facility]) Start: 03-29-2024 End: 03-29-2024 ambulatory SONIA Díaz BALAJI Not Available Start: 02-19-2024 End: 02-19-2024 ambulatory [facility] Work Phone: Start: 02-19-2024 End: 02-19-2024 Patient encounter procedure [facility] Work Phone: Start: 01-04-2024 End: 01-04-2024 ambulatory ADRIEL AYOUB [facility] Start: 10-31-2023 End: 10-31-2023 ambulatory SONIA M BALAJI Not Available Start: 07-05-2023 End: 07-05-2023 ambulatory Tye Champion Other [employer] Other Start: 07-05-2023 Telephone encounter Tye BANKS [facility] Start: 06-19-2023 End: 06-19-2023 ambulatory Tye Champion Other [employer] Other Start: 06-19-2023 Telephone encounter Tye BANKS [facility] Start: 03-05-2023 End: 03-05-2023 ambulatory Tye Champion Other [employer] Other Start: 03-05-2023 Telephone encounter Tye BANKS [facility] Start: 12-29-2022 Office outpatient vi sit 15 minutes Tye Champion Work Phone: [facility] 250 DO Work Phone: Start: 12-29-[address] Adriel Ayoub Facility: Start: 11-25-2022 Telephone encounter Tye BANKS [facility] Start: 11-25-2022 SURGNON, Provider: Adriel Ayoub, Status: Pen, Time: 10:00 AM Tye Champion Work Phone: [facility] 250 DO Work Phone: Start: 11-25-2022 End: 11-25-2022 Admission to same day surgery center DO Tye Champion Work Phone: [facility] Work Phone: Start: 11-25-2022 End: 11-25-2022 ambulatory DO Tye Champion Work Phone: [facility] Work Phone: Start: 11-24-2022 End: 11-24-2022 ambulatory Jeffrey Ayoub Facility:[facility] Start: 11-24-2022 End: 11-24-2022 Patient encounter procedure DO Tye Kaylan Work Phone: [facility] Work Phone: Start: 11-23-[address] Adriel Ayoub Facility: Start: 11-23-2022 Office outpatient vi sit 40 minutes Tye Ortega Kaylan Work Phone: [facility] 250 DO Work Phone: Start: 11-23-2022 Patient encounter procedure Tye Champion Work Phone: [facility] [facility] DO Work Phone: Start: 05-28-2022 Encounter for genera l adult medical examination without abnormal findings DR TYE CHAMPION [facility] Start: 05-25-2022 Adult health examination Gatito Champion Other [facility] [employer] Other Start: 05-25-2022 End: 05-26-[address] TYE CHAMPION Facility:[facility] Start: 05-25-2022 End: 05-26-2022 Encounter for general adult medical examination without abnormal findings DR TYE CHAMPION Facility:[facility] Start: 05-07-2022 End: 05-08-[address] DOCTOR BRISENO Facility:[facility] Start: 05-04-[address] Tye Champion Facility: Start: 05-04-2022 Office outpatient vi sit 15 minutes Tye Shannon Ball Work Phone: [facility] 250 DO Work Phone: Start: 03-30-2022 End: 03-30-2022 ambulatory Vinicio España Other [facility] [employer] Other Start: 03-30-2022 Postop follow up vis it related to original px Vinicio España [facility] [place] [facility] Start: 03-25-2022 End: 03-26-[address] TYE CHAMPION Facility:[facility] Start: 03-24-2022 End: 03-24-2022 ambulatory Vinicio España Facility:[facility] Start: 03-24-2022 End: 03-24-2022 Admission to same day surgery center DO Tye Ball Work Phone: [facility] [place] Start: 03-24-2022 End: 03-24-2022 ambulatory DO Tye Ball Work Phone: [facility] Work Phone: Start: 03-22-2022 End: 03-22-2022 ambulatory Tye Champion Facility:[facility] Start: 03-22-2022 Encounter for other preprocedural examination Vinicio España [facility] Start: 03-22-2022 End: 03-22-2022 ambulatory DO Tye Ball Work Phone: [facility] Work Phone: Start: 03-22-2022 End: 03-22-2022 Patient encounter procedure DO Tye Ball Work Phone: [facility] Start: 03-14-2022 End: 03-15-[address] TYE CHAMPION Facility:[facility] Start: 03-11-2022 End: 03-11-2022 ambulatory Vinicio España Other [facility] [employer] Other Start: 03-11-2022 Encounter for other preprocedural examination Vinicio España [facility] Start: 03-11-2022 Office outpatient vi sit 15 minutes Vinicio España [facility] [place] [facility] Start: 01-10-2022 End: 01-10-2022 ambulatory Tye Ball Facility:[facility] Start: 01-10-2022 End: 01-10-2022 Admission to same day surgery center DO Tye Champion Work Phone: [facility] Start: 01-06-2022 End: 01-06-2022 Patient encounter procedure DO Tye Champion Work Phone: [facility] Start: 12-13-2021 End: 12-13-2021 ambulatory Vinicio España Other [employer] Other Start: 12-13-2021 Postop follow up vis it related to original px Vinicio España [facility] [place] [facility] Start: 12-06-2021 End: 12-06-2021 ambulatory Vinicio España Other [employer] Other Start: 12-06-2021 Postop follow up vis it related to original px Vinicio España [facility] [place] [facility] Start: 11-23-2021 End: 11-23-2021 ambulatory Casey Willis Other [employer] Other Start: 11-23-2021 Telephone encounter Casey Willis [facility] Start: 11-02-2021 End: 11-02-2021 ambulatory Vinicio España Other [employer] Other Start: 11-02-2021 Telephone encounter Vinicio España [facility] [place] [facility] Start: 10-18-2021 End: 10-18-2021 ambulatory Vinicio España Other [employer] Other Start: 10-18-2021 Encounter for other preprocedural examination Vinicio España [facility] [place] [facility] Start: 10-18-2021 Office outpatient vi sit 25 minutes Vinicio España [facility] [place] [facility] Start: 06-18-2021 End: 06-19-[address] TYE CHAMPION Facility:[facility] Start: 05-04-2021 Office outpatient vi sit 15 minutes Tye Champion Work Phone: [facility] 250 DO Work Phone: Procedures Date Procedure Procedure Detail Performing Clinician Start: 07-05-2024 Hemoglobin glycosyla arturo a1c Sonia Lomasznick DO Work Phone: Start: 03-29-2024 Hemoglobin glycosyla arturo a1c Sonia Lomasznick DO Work Phone: Start: 08-09-2023 History of percutane ous transluminal coronary angioplasty History of PTCA Sonia Carpio DO Work Phone: Start: 11-25-2022 CL [facility] Angio DO B enjamin Kaylan Work Phone: Start: 11-25-2022 DO Anson ernestine Kaylan Work Phone: Start: 05-25-[address] BEASLEY IN [place] Comment on above: Performed By: #### P [facility] #### [facility] [address] [place] [address] Dr. Deshawn Canales Start: 03-24-2022 Release of trigger finger DO Tye Champion Work Phone: Start: 01-10-2022 Colonoscopy DO Anson Champion Work Phone: Start: 01-10-2022 Diagnostic endoscopi c examination on colon DO Tye Champion Work Phone: Start: 05-14-2018 Screening for malign ant neoplasm of prostate Tye Champion Other Start: 07-16-2015 General examination of patient Tye Champion Other Appendectomy Tye Champion Work Phone: Depression screening Anson Champion Other History of percutane ous transluminal coronary angioplasty History of PTCA Tye Champion Work Phone: Laboratory test resu lt abnormal Tye Champion Other Percutaneous translu jeovany coronary angioplasty Tye Champion Work Phone: Release of trigger finger Be njgerardo Champion Work Phone: SARS Antigen (LFIA) DO Gatito lazaro Champion Work Phone: Screening for malign ant neoplasm of prostate Tye Champion Other Total colonoscopy Tye Champion Work Phone: Comment on above: PROCEDURE DATE May; PROCEDURE DATE October 2021; Plan of Treatment Date Care Activity Detail Author Start: 10-04-2024 End: 10-04-2024 Patient encounter procedure 10/04/2024 2:30 PM EDT Office Visit [facility] [address] [place] [address] Sonia Carpio, DO [address] [place] [address] [facility] 230 Start: 08-26-2024 End: 08-26-2024 Patient encounter procedure 08/26/2024 2:45 PM EDT Office Visit [facility] [address] [place] [address] Christopher Wylie DPM [address] [place] [address] Arrived [facility] Comment on above: Arrived Start: 07-05-2024 End: 07-05-2024 Patient encounter procedure 07/05/2024 2:15 PM EST Office Visit [facility] [address] [place] [id number] Sonia Caprio, DO [address] [place] [address] [facility] Start: 01-04-2024 FUV, Provider: Adriel Ayoub, Status: Pen, Time: 9:20 AM FUV, Provider: Adriel Ayoub, Status: Pen, Time: 9:20 AM [facility] [facility] DO Work Phone: Start: 05-03-2023 FUV, Provider: Adriel Ayoub, Status: Pen, Time: 11:10 AM FUV, Provider: Adriel Ayoub, Status: Pen, Time: 11:10 AM [facility] [facility] DO Work Phone: Start: 12-29-2022 FUV, Provider: Adriel Ayoub, Status: Pen, Time: 10:30 AM FUV, Provider: Adriel Ayoub, Status: Pen, Time: 10:30 AM [facility] 250 DO Work Phone: Start: 11-25-2022 [facility] Start: 05-04-2022 FUV, Provider: Adriel Ayoub, Status: Pen, Time: 11:10 AM FUV, Provider: Adriel Ayoub, Status: Pen, Time: 11:10 AM [facility] 250 DO Work Phone: Start: 03-24-2022 End: 03-24-2022 [facility] Start: 01-10-2022 [facility] Start: 01-10-2022 Diagnostic endoscopi c examination on colon DH Colonoscopy Diagnostic (Not Applicable) [facility] Start: 01-10-2022 End: 01-10-2022 Admission to same day surgery center Screening for colorectal cancer [facility] Start: 1965 Screening for malign ant neoplasm of colon [facility] Comprehensive metabo lic 2000 panel - Serum or Plasma [facility] Patient referral [facility] Work Phone: [facility] Immunizations Immunization Date Immunization Notes Care Provider Fa vandana 03-13-2024 influenza, injectabl e, quadrivalent, contains preservative Sonia Petznick DO Work Phone: [facility] 10-05-2023 zoster vaccine recombinant Sonia Petznick DO Work Phone: [facility] 03-17-2023 Influenza, injectabl e, Madin Mami Canine Kidney, preservative free, quadrivalent Sonia Petznick DO Work Phone: [facility] 03-17-2023 zoster vaccine recombinant Sonia Petznick DO Work Phone: [facility] 03-16-2022 influenza, injectabl e, quadrivalent, preservative free Sonia Petznick DO Work Phone: [facility] 04-16-2021 Pfizer-BioNTech COVID-19 Vacc 30 MCG/0.3ML Intramuscular Suspension Tye E Ball Work Phone: [facility] Comment on above: Series: 03-17-2021 influenza, injectabl e, quadrivalent, preservative free Sonia Petznick DO Work Phone: [facility] 02-26-2021 influenza, seasonal, injectable Tye E Ball Work Phone: [facility] 250 DO Work Phone: Comment on above: Series: 08-06-2020 Aaron COVID-19 Vaccine 0.5 ML Intramuscular Suspension Tye E Ball Work Phone: [facility] Comment on above: Series: 02-26-2020 influenza, injectabl e, quadrivalent, preservative free Sonia Petznick DO Work Phone: [facility] 03-13-2019 Influenza, injectabl e, Madin Mami Canine Kidney, preservative free, quadrivalent Sonia Petznick DO Work Phone: [facility] 03-06-2018 Influenza, injectabl e, Madin [place] Canine Kidney, preservative free, quadrivalent Sonia Petznick DO Work Phone: [facility] 02-26-2018 influenza, injectabl e, quadrivalent, contains preservative Sonia Petznick DO Work Phone: [facility] 03-08-2017 Influenza, injectabl e, Madin [place] Canine Kidney, preservative free, quadrivalent Sonia Petznick DO Work Phone: [facility] Payers Date Payer Category Payer Unknown [id number] 2022 [facility] [id number] 2021 Self-pay [id number] 1966 Unknown [id number] 2.16.84 [id number] 1966 Unknown [id number] 2.16.84 0.1.510457.3.579.2.593 1966 Unknown [id number] 2.16.84 0.1.430791.3.579.2.593 1966 Unknown [id number] 2.16.84 0.1.281898.3.579.2.593 1966 Unknown [id number] 2.16.84 0.1.066241.3.579.2.593 1966 Unknown [id number] 2.16.840.1.949924.3.579.2.356 1966 Unknown [id number] 2.16.840.1.536770.3.579.2.356 1966 Unknown [id number] 2.16.840.1.322301.3.579.2.356 1966 Unknown [id number] 2.16.840.1.697598.3.579.2.356 1966 Unknown [id number] 2.16.840.1.443540.3.579.2.1244 1966 Unknown [id number] 2.16.84 0.1.004537.3.579.2.1259 1966 Unknown [id number] 2.16.84 0.1.747123.3.579.2.1259 1966 Unknown [id number] 2.16.84 0.1.516939.3.579.2.1259 1966 Unknown [id number] 2.16.84 0.1.255025.3.579.2.1259 1959 [facility] [id number] [id number] Unknown Unknown [facility] [id number] Unknown [employer] [id number] Unknown [id number] 2.16.8 40.1.339506.3.579.2.531 Unknown [id number] 2.16.8 40.1.711741.3.579.2.531 Unknown [id number] 2.16.8 40.1.009689.3.579.2.531 Unknown [id number] 2.16.8 40.1.279122.3.579.2.531 Unknown [id number] 2.16.8 40.1.653432.3.579.2.531 Unknown Chris BC/ [id number] Social History Date Type Detail Facility Start: 06-06-2023 End: 07-05-2024 Never a smoker Never a smoker [facility] Comment on above: COFFEE 3 CUPS DAILY, RARE SODA; Start: 06-06-2023 End: 07-05-2024 Sex Assigned At [facility] Start: 01-10-2022 End: 01-25-2023 Tobacco smoking status PRIS Never smoked tobacco (finding) [facility] Start: 1965 Sex Assigned At Male F [facility] Start: 01-25-2023 Tobacco use and exposure Smokeless tobacco non-user [facility] Start: 03-29-2024 End: 08-26-2024 Alcoholic beverage intake Current drinker of alcohol (finding) [facility] Within the last year , have you been afraid of your partner or ex-partner? No [facility] How often do you att end pentecostalism or congregational services? Patient declined [facility] Are you now , , , , never or living with a partner? [facility] How often to you hav e a drink containing alcohol? 2-3 time sa week [facility] How many standard drinks containing alcohol do you have on a typical day? 1 or 2 [facility] How often do you hav e 6 or more drinks on 1 occasion? Never [facility] (I/We) worried lionel er (my/our) food would run out before (I/we) got money to buy more. Never true [facility] Start: 07-18-2023 Alcohol Comment caffeine: 3-4 cups per day coffee [facility] Start: 1965 Sex assigned at Not on file [facility] Start: 08-02-2024 End: 08-21-2024 Sex Male (finding) [facility] Medical Equipment Procedure Code Equipment Code Equipment Origin al Text Equipment Identifier Dates CL STENT GAGE 3. 5 X 30 FDA Start: 09-18-2018 CL STENT CASPER 2.75 X 15 FDA Start: 09-18-2018 CL STENT GAGE 3. 5 X 30 FDA Start: 09-18-2018 CL STENT CASPER 2.75 X 15 FDA Start: 09-18-2018 CL STENT GAGE 3. 5 X 30 FDA Start: 09-18-2018 CL STENT CASPER 2.75 X 15 FDA Start: 09-18-2018 CL STENT GAGE 3. 5 X 30 FDA Start: 09-18-2018 CL STENT CASPER 2.75 X 15 FDA Start: 09-18-2018 CL STENT GAGE 3. 5 X 30 FDA Start: 09-18-2018 CL STENT CASPER 2.75 X 15 FDA Start: 09-18-2018 CL STENT GAGE 3. 5 X 30 FDA Start: 09-18-2018 CL STENT CASPER 2.75 X 15 FDA Start: 09-18-2018 [id number] Start: 02-06-2024 CL STENT GAGE 3. 5 X 30 FDA Start: 09-18-2018 CL STENT CASPER 2.75 X 15 FDA Start: 09-18-2018 CL STENT GAGE 3. 5 X 30 FDA Start: 09-18-2018 CL STENT CASPER 2.75 X 15 FDA Start: 09-18-2018 Goals Date Patient Goal Desired Activity /State Clinical Notes 10-18-2021 to 08-26-2024 Christopher Wylie DPM - 08/26/2024 2:45 PM EDT Note Date & Type Note Facility 08-26-2024 History of Presen t illness Narrative Images from the original note were not included. Reason for Appointment Established patient: Recheck LT foot painful callus Second Complaint: Annual Comprehensive Diabetic Foot Examination History of Present Illness Established patient presents for recheck of painful LT foot callus. Patient is not applying any cream to the callus. Patient is wearing his custom foot orthotics. Second Complaint: Annual Comprehensive Diabetic Foot Examination. Glucose of 183 at appointment today. A1C on 07-05-2024 was 6.8. He reports a recurrence of the same condition, which he has been managing by sanding down the affected area. He experiences significant discomfort when stepping on the callus, describing it as a burning sensation. He has been using urea cream for treatment. His neuropathy is not too bad. He has been using urea cream for treatment. His A1c is down to 6.7. He has been going to the gym and watching what he eats. Christa has helped a lot. He has lost about 20 pounds in 4 months. MEDICATIONS Current: Christa Review of Systems General: Chills no. Fatigue no. Fever no. Night sweats no. Endocrine: Weakness no. Diabetes yes. Hyperpigmentation no. Cardiovascular: Shortness of breath no. Chest pain no. Gastrointestinal: Constipation no. Diarrhea no. Nausea no. Vomiting no. Hematology: Easy bruisin gno. Anemia no. Bleeding problems no. Musculoskeletal: Leg cramps no. Bone/joint symptoms no. Peripheral Vascular: Edema no. Rest pain no. Varicose veins no. Raynaud's no. Skin: Rash no. Skin lesion(s) no. Nail changes no. Ulceration no. Neurologic: Dizziness no. Headache no. Tingling/Numbness no. Gait abnormality no. Physical Exam Examination General Examination: GENERAL EXAMINATIONawake, aware of surroundings, in no acute distress. FOOT EXAM: Date of Last Foot Exam 08/26/2024 Sensory testing performed: sensations diminished Sensory and motor testing performed: strength normal Pedal pulse taking performed: 2+ Vascular: DORSALIS PEDIS PULSE: bilaterally, 2/4. POSTERIOR TIBIAL PULSE: bilaterally, 2/4. TEMPERATURE GRADIENT: warm to cool. EDEMA: edema bilateral lower extremity. CAPILLARY FILLING TIME(sec): capillary fill intact bilateral digits less than 3 secs. Neurologic: VIBRATORY: diminished bilateral lower extremity. MONOFILAMENT TESTING: diminished bilateral foot. NEUROLOGIC: peripheral neuropathy to the bilateral foot. Dermatologic: SKIN FINDINGS: Skin is thin, shiny, atrophic and dry with absent pedal hair.. HYPERKERATOSIS: Pre-ulcerative calluses: Left medial hallux, Bilateral foot 1st MPJ region. Painful pre-ulcerative callus/keratoderma to the right plantar foot 5th MPJ region x 2 and left plantar foot 5th MPJ region x 3. Left fifth MPJ region callus/keratoderma is painful. NAIL PATHOLOGY: toenails 1-5 bilateral intact. Ankle / Foot: RANGE OF MOTION: full range of motion without pain. MUSCLE STRENGTH: 5/5. Orthopedic: FOOT MORPHOLOGY: pes plano valgus bilaterally. DEFORMITIES: hallux limitus bilaterally. SHOE GEAR EVALUATION: slip on casual shoes. Patient has OTC inserts do not offload his pre-ulcerative callus as well. His custom foot orthotics offer better pre-ulcerative offloading. Assessments Type 2 diabetes mellitus with peripheral neuropathy - E11.42 Pre-ulcerative calluses - L84, Bilateral hallux, Bilateral foot 1st MPJ region, Bilateral foot 5th MPJ region Acquired keratoderma - L85.1 - Left foot fifth MPJ region Left foot pain - M79.672 - LT foot fifth MPJ region Ankle edema - M25.473, DANIAL. ankle Hallux limitus of right foot - M20.5X1 Hallux limitus of left foot - M20.5X2 Acquired pes planovalgus of right foot - M21.41 Acquired pes planovalgus of left foot - M21.42 Assessment & Plan 1. Painful Pre-ulcerative callus/Intractable plantar keratosis especially left foot 5th MPJ region. 2. He was educated about the nature of intractable plantar keratosis, its potential to recur, and the associated pain. 3. Various treatment options were discussed, including the use of urea cream under occlusion, surgical removal, or Mcclure microwave therapy. 4. He was informed that while Mcclure microwave therapy is not covered by insurance, it can be paid for using rose, credit card, or HSA card. The cost per visit is $ 200. The procedure involves 5 pulses, each lasting 1 second, and typically results in pain relief within a week. 5. He was advised to apply urea cream to the calluses and thick toenails, cover with a plastic bag or Saran wrap, and then put on a sock to keep the bag intact. This method will help soften the toenails and calluses over time. RX: Urea 36 percent cream with clobetasol to be applied to painful calluses/ keratoderma q.h.s. under occlusion- dispensed 1 refill. 6. Pre-ulcerative callus to the bilateral foot first MPJ region and left medial hallux were debrided in office today via manual and mechanical means. Pre-ulcerative callus/keratoderma x 2 to the right foot fifth MPJ region and x 3 to the left foot fifth MPJ region were debrided in office today via manual and mechanical means. 7. Patient was advised to self-debride calluses at home with emery board or pumice stone to keep calluses thin. 8. Patient advised to return to wearing his custom orthotics to determine what modifications he feels need to be made. 9. Reappoint as needed. Type 2 diabetes mellitus with peripheral neuropathy 1. Patient seen today for follow-up examination and Annual Comprehensive Diabetic Foot Examination was performed. 2. Patient advised to always maintain proper diabetic control. 3. Patient advised to wash and dry bilateral foot once daily and apply a good moisturizing cream to bilateral lower extremity, except for in between toes, post bathing to keep skin from becoming too dry. 4. Patient advised to perform daily foot inspections and observe for any signs of skin breakdown. 5. His A1C has improved to 6.7. He attributed this improvement to increased physical activity, dietary changes, and the use of Mounjaro. He was congratulated on his progress and encouraged to maintain his current regimen. documented in this encounter [facility] 08-02-2024 Evaluation note Diagnosis Onset Date Resolution ASHD (arteriosclerotic heart disease) acute August 02, 2024 8:32am Hypercholesterolemia acute [facility] 2024 8:32am VIKTOR (obstructive sleep apnea) acute August 02, 2024 8:32am Screening PSA (prostate specific antigen) acute August 02 8:32am Type 1 diabetes mellitus with hyperglycemia acute August 02 8:32am Wellness examination noneactive [facility] 2024 8:32am [facility] Work Phone: 1(236) 185-482302-09-2025 History of Present illness Narrative* Sonia Carpio DO - 07/07/2024 3:51 PM ESTAssociated Problem(s): Type 2 diabetes mellitus with peripheral neuropathy (CMS/HCC) During the appointment today all pertinent labs, imaging, health maintenance, and glucose readings were reviewed. Encouraged to check blood glucose throughout the day with some fasting and some PP readings. They are to bring their glucose meter/cgm in to all appointments. All of the patients questions, treatment options, and current care plan and goals were discussed. Acopy of this along with pertinent instructions were given to the patient at the end of the appointment. The patient voices understanding of all of this and is to call in between appointments if they have any problems or questions. April Carlin is doing very well and encouraged on this. , Will stay on current medications. , The patient is wearing their cgm on a daily basis and making decisions in regards to adjusting insulin daily as well for at least the last 60 days , Instructions given today include: Insulin instructions and Dietary education. We may need to continue to decrease his insulin in the future but will stay with current doses for now. * Sonia Carpio DO - 07/05/2024 2:15 PM EST Images from the original note were not included. April Carlin is a 58 y.o. male presents with chief complaint of Diabetes HPI: Diabetes Mellitus Follow-up: April Carlin is here for follow-up evaluation of diabetes mellitus. The initial diagnosis of diabetes was made in 1984 Diabetes complications: neuropathy, retinopathy He has been checking his blood glucose with a Dexcom G7 CGM - LINKED- on a daily basis. Running smooth and in range throughout the day. He has some low bg overnight but that is better with his lower dose of lantus. Last A1c: 7.7 (03/29/24) Last eye exam: 06/21/2023 Current concerns include: Loss 21 lbs since his last visit when mounjaro was added. He is dealing with some constipation withthe mounjaro. Slowly reducing lantus and his last change was 58 units 5 -7 days ago due to low readings and he doesn't have the lows anymore Bg levels: improving Diet: Counting carbs, smaller portions Drinks: water, coffee sugar free creamer, diet coke, light beer Exercise: Walking- 3x a week Hypoglycemia: couple days a week overnight SUBJECTIVE: PROBLEM LIST SOCIAL ALLERGIES: Patient Active Problem List Diagnosis Other chronic pain Type 2 diabetes mellitus with peripheral neuropathy ([facility]) Pure hypercholesterolemia ([facility]) Class 3 severe obesity due to excess calories with serious comorbidity and body mass index (BMI) of40.0 to 44.9 in adult ([facility]) Type 2 diabetes mellitus with other diabetic arthropathy ([facility]) Type 2 diabetes mellitus with both eyes affected by mild nonproliferative retinopathy without macular edema, with long-term current use of insulin ([facility]) STONE (acute kidney injury) ([facility]) Angina pectoris [facility] [facility]) Atherosclerosis of coronary artery [place]) Essential hypertension [place] Heart burn History of PTCA Hyperlipidemia ([facility]) Screening for colorectal cancer Trigger finger Ureterolithiasis Type 2 diabetes mellitus with other circulatory complications ([facility]) Social History Tobacco Use Smoking status: Never Smokeless tobacco: Never Substance Use Topics Alcohol use: Yes Alcohol/week: 2.0 - 3.0 standard drinks of alcohol Types: 2 - 3 Standard drinks or equivalent per week Comment: caffeine: 3-4 cups per day coffee Drug use: Never Allergies Allergen Reactions Other Synopsis SmartLink 07/05/2024 Antidiabetic medications Empagliflozin 10 mg Daily PO Insulin Degludec 70 Units q AM SC -Discontinued (Dose adjustm) Patient taking differently: 58 Units q AM as of 07/05/2024 2:43 PM Insulin Degludec 58 Units q AM SC Insulin Lispro 1:4 CARBOHYDRATE RATIO BEFORE MEALS PLUS CORRECTION 1:30 GREATER THAN 150MG/DL ( MAXIMUM DAILY: 100 UNIT) (200 UNIT/ML SOPN) Tirzepatide 5 mg Weekly SC (5 MG/0.5ML SOAJ) [place] [facility] [place] A1C/HEMOGLOBIN.TOTAL:MFR:PT:BLD:QN: 6.8 Outpatient prescription Medication marked as long-term Patient taking a medication differently The ASCVD Risk score (Russ LEDEZMA, et al., 2019) failed to calculate for the following reasons: Cannot find a previous HDL lab Cannot find a previous total cholesterol lab REVIEW OF SYMPTOMS: Review of Systems Constitutional: Negative for appetite change, fatigue and unexpected weight change. Eyes: Negative for visual disturbance. Respiratory: Negative for cough, shortness of breath and wheezing. Cardiovascular: Negative for chest pain, palpitations and leg swelling. Neurological: Positive for numbness. Endocrine: Negative for polydipsia, polyphagia and polyuria. OBJECTIVE: 07/05/2024 2:27 PM 03/29/2024 3:29 PM 10/31/2023 2:33 PM Vitals BMI 41.14 kg/m2 44.16 kg/m2 44.24 kg/m2 Systolic 126 130 128 Diastolic 64 64 68 Heart Rate 71 71 78 Temp 98.4 F 97 F 96.7 F Height (in) 5' 11 5' 11 5' 11 Weight (lb) 295 316.6 317.2 Visit Report Report Report Report Physical Exam Constitutional: General: He is not in acute distress. Appearance: Normal appearance. He is obese. Cardiovascular: Rate and Rhythm: Normal rate and regular rhythm. Heart sounds: No murmur heard. No friction rub. No gallop. Pulmonary: Breath sounds: Normal breath sounds. No wheezing, rhonchi or rales. Musculoskeletal: General: No swelling. Neurological: Mental Status: He is alert. ASSESSMENT AND PLAN: Problem List Items Addressed This Visit Type 2 diabetes mellitus with peripheral neuropathy (CMS/HCC) - Primary During the appointment today all pertinent labs, imaging, health maintenance, and glucose readings were reviewed. Encouraged to check blood glucose throughout the day with some fasting and some PP readings. They are to bring their glucose meter/cgm in to all appointments. All of the patients questions, treatment options, and current care plan and goals were discussed. Acopy of this along with pertinent instructions were given to the patient at the end of the appointment. The patient voices understanding of all of this and is to call in between appointments if they have any problems or questions. April Vanessa Carlin is doing very well and encouraged on this. , Will stay on current medications. , The patient is wearing their cgm on a daily basis and making decisions in regards to adjusting insulin daily as well for at least the last 60 days , Instructions given today include: Insulin instructions and Dietary education. We may need to continue to decrease his insulin in the future but will stay with current doses for now. Relevant Medications empagliflozin (Jardiance) 10 MG Tirzepatide (Mounjaro) 5 MG/0.5ML solution auto-injector insulin degludec (Tresiba FlexTouch) 200 UNIT/ML injection Class 3 severe obesity due to excess calories with serious comorbidity and body mass index (BMI) of40.0 to 44.9 in adult ([facility]) Type 2 diabetes mellitus with other diabetic arthropathy [place] Type 2 diabetes mellitus with both eyes affected by mild nonproliferative retinopathy without macular edema, with long-term current use of insulin [place] Relevant Orders POCT glycosylated hemoglobin (Hb A1C) docked device (Completed) Type 2 diabetes mellitus with other circulatory complications [place] Follow up in about 3 months (around 10/02/2024) for Recheck. Patient's Medications New Prescriptions No medications on file Previous Medications AMLODIPINE (NORVASC) 5 MG TABLET 1 (one) time each day at the same time ASPIRIN 81 MG EC TABLET 1 (one) time each day at the same time ATORVASTATIN (LIPITOR) 80 MG TABLET 1 (one) time each day at the same time CONTINUOUS GLUCOSE SENSOR (DEXCOM G7 SENSOR) MISC Inject 1 Device under the skin See administrationinstructions Change every 10 days GLUCOSE BLOOD TEST STRIP every 6 (six) hours INSULIN LISPRO (HUMALOG KWIKPEN) 200 UNIT/ML SOLUTION PEN-INJECTOR PEN 1:4 CARBOHYDRATE RATIO BEFORE MEALS PLUS CORRECTION 1:30 GREATER THAN 150MG/DL ( MAXIMUM DAILY: 100 UNIT) INSULIN PEN NEEDLE (TRUEPLUS 5-BEVEL PEN NEEDLES) 31G X 6 MM MISC Use as instructed 4 times a day LISINOPRIL 40 MG TABLET METOPROLOL SUCCINATE XL (TOPROL-XL) 50 MG 24 HR TABLET 1 (one) time each day at the same time MULTIPLE VITAMIN (MULTI-VITAMIN) TABLET Take by mouth MULTIPLE VITAMINS-MINERALS (EYE VITAMINS & MINERALS PO) 1 tablet NITROGLYCERIN (NITROSTAT) 0.[address] 0.4 mg under the tongue Modified Medications Modified Medication Previous Medication EMPAGLIFLOZIN (JARDIANCE) 10 MG empagliflozin (Jardiance) 10 MG Take 1 tablet (10 mg) by mouth Daily Take 1 tablet (10 mg) by mouth Daily INSULIN DEGLUDEC (TRESIBA FLEXTOUCH) 200 UNIT/ML INJECTION insulin degludec (Tresiba FlexTouch) 200UNIT/ML injection Inject 58 Units under the skin in the morning. Inject 70 Units under the skin in the morning. TIRZEPATIDE (MOUNJARO) 5 MG/0.5ML SOLUTION AUTO-INJECTOR Tirzepatide (Mounjaro) 5 MG/0.5ML solutionauto-injector Inject 5 mg under the skin 1 (one) time per week Inject 5 mg under the skin 1 (one) time per week Discontinued Medications CONTINUOUS GLUCOSE SENSOR (FREESTYLE YOSI 3 SENSOR) MISC Inject 1 each under the skin every 14 (fourteen) days I have reviewed and reconciled the history and medication list with the patient today. documented in this encounterSSM [id number] History of Present illness Narrative* Sonia Carpio DO - 03/31/2024 1:55 PM ESTAssociated Problem(s): Type 2 diabetes mellitus with peripheral neuropathy (CMS/HCC) During the appointment today all pertinent labs, imaging, health maintenance, and glucose readings were reviewed. Encouraged to check blood glucose throughout the day with some fasting and some PP readings. They are to bring their glucose meter/cgm in to all appointments. All of the patients questions, treatment options, and current care plan and goals were discussed. Acopy of this along with pertinent instructions were given to the patient at the end of the appointment. The patient voices understanding of all of this and is to call in between appointments if they have any problems or questions. April Carlin control is stable overall. , The patient is wearing their cgm on a daily basis andmaking decisions in regards to adjusting insulin daily as well for at least the last 60 days , Discussed dietary changes at length. Encouraged to limit simple carbs and focus more on healthy protein/fat with all meals and snacks. They should also avoid any sugary drinks. , Instructions given today include: Insulin instructions and Dietary education. Will start mounjaro. GLP-1 and GLP-1/GIP agonist: Instructed on injection technique and the use of the medication. Pt has no hx of pancreatitis or fmh of mtc. Pt is to call if any significant vomiting, diarrhea, or reflux. Loosen carb ratio with starting mounjaro. * Sonia Carpio DO - 03/29/2024 3:30 PM EDT Images from the original note were not included. April Carlin is a 58 y.o. male presents with chief complaint of Diabetes HPI: Diabetes Mellitus Follow-up: April Carlin is here for follow-up evaluation of diabetes mellitus. The initial diagnosis of diabetes was made in 1984 Diabetes complications: none he has been checking his blood glucose with a Yosi 3 ([employer]) on a daily basis. He will have good days when bg are smooth and in range and other days spikes up significantly. Last A1c: 7.7 (10/31/23) Last eye exam: 06/21/2023 Current concerns include: States Bg levels have been similar to last visit. Diet; Counting carbs Exercise: Walking- 3x a week Hypoglycemia: A couple (at night) Pt states he is no longer going to be using mail order, and is switching to [facility] in [place]. Pt states [facility] would always have issues with scripts and sending out Rxs. Would like to discuss refills. Diabetes Associated symptoms include fatigue. Pertinent negatives for diabetes include no chest pain, no polydipsia, no polyphagia and no polyuria. SUBJECTIVE: PROBLEM LIST SOCIAL ALLERGIES: Patient Active Problem List Diagnosis Insulin resistance Other chronic pain Type 2 diabetes mellitus with peripheral neuropathy ([facility]) Pure hypercholesterolemia ([facility]) Class 3 severe obesity due to excess calories with serious comorbidity and body mass index (BMI) of40.0 to 44.9 in adult ([facility]) Type 2 diabetes mellitus with other diabetic arthropathy ([facility]) Type 2 diabetes mellitus with both eyes affected by mild nonproliferative retinopathy without macular edema, with long-term current use of insulin ([facility]) STONE (acute kidney injury) ([facility]) Angina pectoris ([facility]) Atherosclerosis of coronary artery ([facility]) Essential hypertension ([facility]) Heart burn History of PTCA Hyperlipidemia ([facility]) Morbid obesity with BMI of 40.0-44.9, adult ([facility]) Screening for colorectal cancer Trigger finger Ureterolithiasis Type 2 diabetes mellitus with other circulatory complications ([facility]) Social History Tobacco Use Smoking status: Never Smokeless tobacco: Never Substance Use Topics Alcohol use: Yes Alcohol/week: 2.0 - 3.0 standard drinks of alcohol Types: 2 - 3 Standard drinks or equivalent per week Comment: caffeine: 3-4 cups per day coffee Allergies Allergen Reactions Other Synopsis SmartLink 03/29/2024 02/19/2024 00:00 02/18/2024 23:59 Antidiabetic medications Empagliflozin 10 mg Daily PO-Discontinued (Reorder) 10 mg Daily PO 10 mg Daily PO Empagliflozin 10 mg Daily PO Insulin Degludec INJECT 70 UNITS SUBCUTANEOUSLY DAILY (200 UNIT/ML SOPN)- Discontinued (Reorder) INJECT 70 UNITS SUBCUTANEOUSLY DAILY (200 UNIT/ML SOPN) INJECT 70 UNITS SUBCUTANEOUSLY DAILY (200 UNIT/ML SOPN) Insulin Degludec 70 Units q AM SC Insulin Lispro 1:3 CARBOHYDRATE RATIO BEFORE MEALS PLUS CORRECTION 1:30 GREATER THAN 150MG/DL ( MAXIMUM DAILY: 100 UNIT) (200 UNIT/ML SOPN) -Discontinued (Reorder) Insulin Lispro 1:3 CARBOHYDRATE RATIO BEFORE MEALS PLUS CORRECTION 1:30 GREATER THAN 150MG/DL ( MAXIMUM DAILY: 100 UNIT) (200 UNIT/ML SOPN)-Discontinued (Reorder) 1:3 CARBOHYDRATE RATIO BEFORE MEALS PLUS CORRECTION 1:30 GREATER THAN 150MG/DL ( MAXIMUM DAILY: 100 UNIT) (200 UNIT/ML SOPN) Insulin Lispro 1:4 CARBOHYDRATE RATIO BEFORE MEALS PLUS CORRECTION 1:30 GREATER THAN 150MG/DL ( MAXIMUM DAILY: 100 UNIT) (200 UNIT/ML SOPN) Tirzepatide 5 mg Weekly SC (5 MG/0.5ML SOAJ) Labs [facility] A1C 7.7 Outpatient prescription Medication marked as long-term REVIEW OF SYMPTOMS: Review of Systems Constitutional: Positive for fatigue. Negative for appetite change and unexpected weight change. Eyes: Negative for visual disturbance. Respiratory: Negative for cough, shortness of breath and wheezing. Cardiovascular: Negative for chest pain, palpitations and leg swelling. Neurological: Positive for numbness. Endocrine: Negative for polydipsia, polyphagia and polyuria. OBJECTIVE: 03/29/2024 3:29 PM 10/31/2023 2:33 PM 07/19/2023 2:41 PM Vitals BMI 44.16 kg/m2 44.24 kg/m2 Systolic 130 128 137 Diastolic 64 68 64 Heart Rate 71 78 76 Temp 97 F 96.7 F 98.2 F Height (in) 5' 11 5' 11 Weight (lb) 316.6 317.2 Visit Report Report Report Report Physical Exam Constitutional: General: He is not in acute distress. Appearance: Normal appearance. He is obese. Cardiovascular: Rate and Rhythm: Normal rate and regular rhythm. Heart sounds: No murmur heard. No friction rub. No gallop. Pulmonary: Breath sounds: Normal breath sounds. No wheezing, rhonchi or rales. Musculoskeletal: General: No swelling. Neurological: Mental Status: He is alert. ASSESSMENT AND PLAN: Problem List Items Addressed This Visit Type 2 diabetes mellitus with peripheral neuropathy (CMS/HCC) During the appointment today all pertinent labs, imaging, health maintenance, and glucose readings were reviewed. Encouraged to check blood glucose throughout the day with some fasting and some PP readings. They are to bring their glucose meter/cgm in to all appointments. All of the patients questions, treatment options, and current care plan and goals were discussed. Acopy of this along with pertinent instructions were given to the patient at the end of the appointment. The patient voices understanding of all of this and is to call in between appointments if they have any problems or questions. April Carlin control is stable overall. , The patient is wearing their cgm on a daily basis andmaking decisions in regards to adjusting insulin daily as well for at least the last 60 days , Discussed dietary changes at length. Encouraged to limit simple carbs and focus more on healthy protein/fat with all meals and snacks. They should also avoid any sugary drinks. , Instructions given today include: Insulin instructions and Dietary education. Will start mounjaro. GLP-1 and GLP-1/GIP agonist: Instructed on injection technique and the use of the medication. Pt has no hx of pancreatitis or fmh of mtc. Pt is to call if any significant vomiting, diarrhea, or reflux. Loosen carb ratio with starting mounjaro. Relevant Medications empagliflozin (Jardiance) 10 MG Continuous Glucose Sensor (FreeStyle Yosi 3 Sensor) misc insulin degludec (Tresiba FlexTouch) 200 UNIT/ML injection insulin lispro (HumaLOG KWIKPEN) 200 UNIT/ML solution pen-injector pen Tirzepatide (Mounjaro) 5 MG/0.5ML solution auto-injector Other Relevant Orders POCT glycosylated hemoglobin (Hb A1C) docked device (Completed) Class 3 severe obesity due to excess calories with serious comorbidity and body mass index (BMI) of40.0 to 44.9 in adult ([facility]) Type 2 diabetes mellitus with other diabetic arthropathy [place] Type 2 diabetes mellitus with both eyes affected by mild nonproliferative retinopathy without macular edema, with long-term current use of insulin [place] Type 2 diabetes mellitus with other circulatory complications ([facility] - Primary Follow up in about 3 months (around 06/29/2024) for Recheck. Patient's Medications New Prescriptions TIRZEPATIDE (MOUNJARO) 5 MG/0.5ML SOLUTION AUTO-INJECTOR Inject 5 mg under the skin 1 (one) time per week Previous Medications AMLODIPINE (NORVASC) 5 MG TABLET 1 (one) time each day at the same time ASPIRIN 81 MG EC TABLET 1 (one) time each day at the same time ATORVASTATIN (LIPITOR) 80 MG TABLET 1 (one) time each day at the same time GLUCOSE BLOOD TEST STRIP every 6 (six) hours INSULIN PEN NEEDLE (TRUEPLUS 5-BEVEL PEN NEEDLES) 31G X 6 MM MISC Use as instructed 4 times a day LISINOPRIL 40 MG TABLET METOPROLOL SUCCINATE XL (TOPROL-XL) 50 MG 24 HR TABLET 1 (one) time each day at the same time MULTIPLE VITAMIN (MULTI-VITAMIN) TABLET Take by mouth MULTIPLE VITAMINS-MINERALS (EYE VITAMINS & MINERALS PO) 1 tablet NITROGLYCERIN (NITROSTAT) 0.[address] 0.4 mg under the tongue Modified Medications Modified Medication Previous Medication CONTINUOUS GLUCOSE SENSOR (FREESTYLE YOSI 3 SENSOR) MISC Continuous Glucose Sensor (FreeStyle Yosi 3 Sensor) misc Inject 1 each under the skin every 14 (fourteen) days Inject 1 each under the skin every 14 (fourteen) days EMPAGLIFLOZIN (JARDIANCE) 10 MG empagliflozin (Jardiance) 10 MG Take 1 tablet (10 mg) by mouth Daily TAKE 1 TABLET ONCE DAILY INSULIN DEGLUDEC (TRESIBA FLEXTOUCH) 200 UNIT/ML INJECTION insulin degludec (Tresiba FlexTouch) 200UNIT/ML injection Inject 70 Units under the skin in the morning. INJECT 70 UNITS SUBCUTANEOUSLY DAILY INSULIN LISPRO (HUMALOG KWIKPEN) 200 UNIT/ML SOLUTION PEN-INJECTOR PEN insulin lispro (HumaLOG KWIKPEN) 200 UNIT/ML solution pen-injector pen 1:4 CARBOHYDRATE RATIO BEFORE MEALS PLUS CORRECTION 1:30 GREATER THAN 150MG/DL ( MAXIMUM DAILY: 100UNIT) 1:3 CARBOHYDRATE RATIO BEFORE MEALS PLUS CORRECTION 1:30 GREATER THAN 150MG/DL ( MAXIMUM DAILY: 100 UNIT) Discontinued Medications No medications on file I have reviewed and reconciled the history and medication list with the patient today. documented in this encounterSSM [id number] Discharge summary Author Jeffrey Ayoub [facility] November 25, 2022 12:10pm Note Date/Time November 25, 2022 12:1 0pm [facility] [address] [place] [address] Discharge Summary Signed Patient: April Carlin MR#: [id number] : 1965 Acct:[id number] Age/Sex: 57 / M Adm Date: 3 Loc: Room: Attending Dr: Jeffrey Ayoub DO Copies to: DO Jeffrey Francois DO~ Providers Date of Discharge: 11/25/22 Discharging Provider: Jeffrey Ayoub Primary Care Provider: Tye Champion Discharge Diagnosis (1) Morbid obesity with BMI of 40.0-44.9, adult: (2) Angina pectoris: (3) CAD (coronary artery disease): (4) Diabetes: (5) Chest pain: Final Diagnosis Final Discharge Diagnosis: 1. ASHD 2. History of two-vessel PCI 3. Class III-IV anginal/chest pain syndrome 5. Diabetes mellitus 6. Obesity Summary Hospital Course Hospital course: 57-year-old gentleman with progressive angina, class III, with previous history of two-vessel revascularization of the LAD and RCA. He presents with class III to class IV symptomatology therefore heart catheterization was recommended Cardiac catheterization today reveals widely patent stents in the proximal/mid and distal LAD with a patent diagonal sidebranch, and patent RCA stents with minimal 20% in-stent narrowing; normal left ventricular function Medical therapy is warranted Condition Condition at Discharge: Stable Status at Discharge Functional status at discharge: independent ambulation Overall status at discharge: patient is back to baseline Time Spent with Patient Time spent providing/coordinating discharge services (# min): 15 Surgeries and Procedures Operation Date: 11/25/22 10:15 Actual Procedures p CL LHC & COR Angio - W Frandy Ayoub DO Complications Complications: None Exam Physical Exam Vital Signs: Temp Pulse Resp BP Pulse Ox O2 Del Method 97.8 F 76 20 144/76 H 97 Room Air 11/25/22 08:58 11/25/22 08:58 11/25/22 08:58 11/25/22 08:58 11/25/22 08:58 11/25/22 09:00 Discharge Plan Discharge Plan Patient Disposition: Home Diet: Low-Cholesterol Additional Instructions: DISCHARGE INSTRUCTIONS FOR CARDIAC CERAMIST PHONE NUMBER OF YOUR PHYSICIAN: [phone] PROCEDURE: Heart Cath The following instructions have been prepared to help you care for yourself, or be cared for upon your return home. 1. You were given conscious sedation. Do not operate a vehicle, power tools, make important decisions, or drink alcohol for 24 hours. You might be drowsy orlight headed. Return to the Emergency Room if you have trouble breathing, walking or nausea and vomiting. 2. FOR BLEEDING: Apply continuous pressure to the site and call 911. 3. Operative Site Care: Keep the dressing clean and dry. You may change the dressing only if soiled or wet. You may remove the dressing the following morning. You may wash over the puncture site in the shower. If the puncture site is at the wrist no soaking for 3 days. Some bruising or slight swelling may be present. -Signs of infection are redness, warmth, swelling, getting more sore, colored drainage, fever or chills. -Should the arm or leg become cold, numb, blue or white, call the pv design and installation technician immediately. 4. ACTIVITY: You are advised to go directly home from the hospital. Restrict your activities for the rest of the day. Resume light or normal activities tomorrow. Do not engage in any activity that will stress the puncture site. Avoidheavy lifting (over 15 lbs.), straining or bending at the catheter site for 48 hours after discharge. If the puncture site is at the wrist do not manipulate wrist for 24 hours and no lifting more than 3 lbs for 3 days. 5. DIET:You may eat your regular diet when you desire. 6. MEDICATIONS: Resume your daily prescription schedule. Prescriptions may be sent with you if needed. Use as directed. When taking pain medications, you may experience dizziness or drowsiness. Do not drink alcohol or drive when taking pain medications. 7. If you should experience episodes of angina e.g. chest discomfort, heaviness, tightness, pressure, burning, with or without radiation to the neck, jaws, arms, or back- Use 1 Nitrostat under your tongue every 5-10 minutes, and up to 3 tablets. If no relief- Call 911 and go to the nearest Emergency Room. -Notify the office for recurrent angina, chest pain or other concerns. You may NOT drive yourself home! Follow the medication instructions provided on your discharge. If the dosages and instructions on this sheet differ from the dosage and instructions on the bottle, follow the instructions on the bottle. [facility] is not responsible for incorrect prescription information provided by thepatient during their visit. Do not stop your medications without consulting your health care provider. Please take the list with you to your next doctor's appointment. Prescriptions: No Action amlodipine 10 mg tablet 5 mg PO QAM Patient Comments: TK 1 T PO D Jardiance 10 mg tablet 10 mg PO DAILY insulin degludec [Tresiba FlexTouch U-200] 200 unit/mL (3 mL) insulin pen 64 unit SUBCUT DAILY Patient Comments: 32 taken 03-24-22 d/t surgery Humalog KwikPen Insulin 200 unit/mL (3 mL) insulin pen 1 unit SUBCUT TID Patient Comments: Took 3 units today Rx Instructions: 1:4 carb ratio with meals aspirin [Aspir-81] 81 mg Tablet,Delayed Release (Dr/Ec) 81 mg PO QAM lisinopril 40 mg Tablet 40 mg PO QAM metoprolol succinate 50 mg Cap,Sprinkle,Er 24hr Dose Pack 50 mg PO QAM atorvastatin 80 mg tablet 80 mg PO QHS nitroglycerin 0.2 mg/hr patch 24 hour 0.2 mg transdermal DAILY Patient Comments: APPLY PATCH FOR 12 TO 14 HOURS DAILY, THEN REMOVE nitroglycerin 0.4 mg tablet, sublingual 0.4 mg sublingual Q5MIN.X3 PRN (Reason: Chest Pain) Patient Comments: PLACE 1 TABLET UNDER TONGUE EVERY 5 MINS, UP TO 3 DOSES NEEDED FOR CHEST PAIN clopidogrel 75 mg tablet 75 mg PO 1XD multivitamin Tablet 1 tab PO DAILY Eye Vitamin and Minerals [id number] Tablet 1 tab PO DAILY Follow Up: Jeffrey Ayoub DO [Active Staff - D.O.] - Tye Champion DO [Primary Care Provider] - Documented By: Jeffrey Ayoub DO 11/25/22 1207 Signed By: <Electronically signed by Jeffrey Ayoub DO> 11/25/22 1210 [facility] Work Phone: [phone] 704-322906-30-2023 [facility]* Encounter Date Diagnosis Assessment Notes Treatment Notes Treatment Clinical Notes Mar, Trigger middle finge r of right hand (ICD-10 - M65.331) April is here 1 week s/p right middle finger trigger finger release. He is doing well. His surgical incision is benign. No further triggering. Sutures been removed today. We discussed working on range of motion activities. If these have not returned to normal over the next 3 weeks patient should call for physical therapy appointment. Otherwise okay to slowly return activities as tolerated without restrictions. Follow-up as needed Sutures removed today under sterile conditions. Patient tolerated well with no adverse reactions. Steri strips placed of the incision. May allow incision to get wet in clean running water, no rodney/fay/str eams. Mar, Trigger finger, left ring finger (ICD-10 - M65.342) Doing well without issues Mar, Trigger finger, left little finger (ICD-10 - M65.352) Mar, Other specified postprocedural states (ICD-10 - Z98.890) Mar, Encounter for remova l of sutures (ICD-10 - Z48.02) Mar, Other See orders for this visit as documented in the electronic medical record. [employer] Other 10-14-2022 Evaluation note* Encounter Date Diagnosis Assessment Notes Treatment Notes Treatment Clinical Notes Feb, Trigger middle finger of right hand (ICD-10 - M65.331) The finding and diagnosis of trigger finger has been discussed at length with the patient. The mechanism of stenosing tenosynovitis and the effect on smooth tendon glide at the level of the A1 cara have been discussed with the patient. Nonoperative treatment including splinting, activity modification and NSAIDs have been discussed with the patient. Cortisone injections have been discussed and offered as well and the risks of fat atrophy, tendon rupture and transient hyperglycemia were discussed and understood. The surgical release of the A1 cara has been discussed along with possible complications and risks including digital nerve injury, bowstringing, wound healing issues, postoperative pain and stiffness and the possibility of the need for therapy. At this time the patient elects to proceed with trigger finger release of right middle finger. At this juncture we have discussed the findings and diagnosis as well as reviewed appropriate imaging and performed interpretation of testing. Surgical intervention is recommended. Prior medical notes and history have been reviewed. Surgical versus non-operative management have been discussed in detail and non-operative management was given as an option. The risks of surgical intervention were given. Pre-operative optimization will be done prior to surgical procedure to limit tara-operative risks. I have discussed the planned procedure, how and who performs the procedure, and the personnel involved. Cardiovascular, pulmonary, and other life threatening episodes can occur during surgery although there is a low risk of these happening. Surgical risks including bleeding, neurovascular injury, wound closure problems and infection were discussed. Tara-operative risks including infection, bleeding, wound healing problems, and need for further surgery were discussed. It was discussed that there is a possibility of blood transfusion with any surgical procedure and the risks involved in receiving a blood transfusion. Possibility of, and need for, future bracing or DME use, physical or occupational therapy, mental therapy, rehabilitation, pain management and need for secondary procedures was discussed. I have warned against smoking and the use of tobacco products due to the risks associated with them, in particular, poor healing. I have advised against the termite helper use of narcotic pain medication. I have advised to follow all post-operative instructions in order to obtain the best outcome. Informed consent has been verbally affirmed and signed as indicated. All treatment options as well as risks of the proposed procedure were thoroughly discussed with the patient including bleeding, nerve and vessel injury, infection, persistent pain, stiffness, failure of procedure, mechanical failure, need for further surgery, DVT, as well as risks of anesthesia. Patient has admitted full understanding of these risks and would like to proceed. Feb, Pre-op examination (ICD-10 - Z01.818) Feb, Trigger finger, left ring finger (ICD-10 - M65.342) Doing well without issues Feb, Trigger finger, left little finger (ICD-10 - M65.352) Feb, Other specified postprocedural states (ICD-10 - Z98.890) [employer] Other 08-15-2022 [facility]* Encounter Date Diagnosis Assessment Notes Treatment Notes Treatment Clinical Notes Nov, Trigger finger, left ring finger (ICD-10 - M65.342) April is here today 2 week s/p left ring and pinky finger A1 cara releases. He is doing well. His incision is overall benign but he does have a couple of macerated areas which we have left the sutures at today. He is okay to start increasing his activities well maintaining and protecting his incision. Continue range of motion of the fingers. Nov, Trigger finger, left little finger (ICD-10 - M65.352) Nov, Other specified postprocedural states (ICD-10 - Z98.890) Nov, Encounter for remova l of sutures (ICD-10 - Z48.02) Remaining suture removed. Patient instructed he may progress activity as tolerated Nov, Other See orders for this visit as documented in the electronic medical record. [employer] Other 07-11-2022 Evaluation note* Encounter Date Diagnosis Assessment Notes Treatment Notes Treatment Clinical Notes Nov, Trigger finger, left ring finger (ICD-10 - M65.342) April is here today 1 week s/p left ring and pinky finger A1 cara releases. He is doing well. His incision is overall benign but he does have a couple of macerated areas which we have left the sutures at today. He is okay to start increasing his activities well maintaining and protecting his incision. Continue range of motion of the fingers. Plan for follow-up in 1 week for nurses visit to remove the final sutures. Nov, Trigger finger, left little finger (ICD-10 - M65.352) Nov, Other specified postprocedural states (ICD-10 - Z98.890) Nov, Encounter for remova l of sutures (ICD-10 - Z48.02) Suture removal performed. Patient tolerated well. Patient will return in a week for nurse visit for removal of remaining two sutures. Nov, Other See orders for this visit as documented in the electronic medical record. [employer] Other 06-28-2022 Evaluation note* Encounter Date Diagnosis Assessment Notes Treatment Notes Treatment Clinical Notes Oct, Family history of colon cancer (ICD-10 - Z80.0) [employer] Other 05-23-2022 Evaluation note* Encounter Date Diagnosis Assessment Notes Treatment Notes Treatment Clinical Notes September, Trigger finger, left ring finger (ICD-10 - M65.342) April presents with left ring and pinky trigger fingers. At this juncture we have discussed the findings and diagnosis as well as personally reviewed appropriate imaging and performed interpretation of related testing and examination with the patient in office today. Prior medical notes from Dr. Ceja and history have been reviewed. The finding and diagnosis of trigger finger has been discussed at length with the patient. The mechanism of stenosing tenosynovitis and the effect on smooth tendon glide at the level of the A1 cara have been discussed with the patient. Nonoperative treatment including splinting, activity modification and NSAIDs have been discussed with the patient. Cortisone injections have been discussed and offered as well and the risks of fat atrophy, tendon rupture and transient hyperglycemia were discussed and understood. The surgical release of the A1 cara has been discussed along with possible complications and risks including digital nerve injury, bowstringing, wound healing issues, postoperative pain and stiffness and the possibility of the need for therapy. At this time the patient elects to proceed with surgical release of the left ring and pinky fingers. At this juncture we have discussed the findings and diagnosis as well as reviewed appropriate imaging and performed interpretation of testing. Surgical intervention is recommended. Prior medical notes and history have been reviewed. Surgical versus non-operative management have been discussed in detail and non-operative management was given as an option. The risks of surgical intervention were given. Pre-operative optimization will be done prior to surgical procedure to limit tara-operative risks. I have discussed the planned procedure, how and who performs the procedure, and the personnel involved. Cardiovascular, pulmonary, and other life threatening episodes can occur during surgery although there is a low risk of these happening. Surgical risks including bleeding, neurovascular injury, wound closure problems and infection were discussed. Tara-operative risks including infection, bleeding, wound healing problems, and need for further surgery were discussed. It was discussed that there is a possibility of blood transfusion with any surgical procedure and the risks involved in receiving a blood transfusion. Possibility of, and need for, future bracing or DME use, physical or occupational therapy, mental therapy, rehabilitation, pain management and need for secondary procedures was discussed. I have warned against smoking and the use of tobacco products due to the risks associated with them, in particular, poor healing. I have advised against the skilled nursing use of narcotic pain medication. I have advised to follow all post-operative instructions in order to obtain the best outcome. Informed consent has been verbally affirmed and signed as indicated. Preop antibiotics required The patient has been involved in our cooperative treatment plan and agrees to move forward with treatment at this time. September, Trigger finger, left little finger (ICD-10 - M65.352) September, Pre-op exam (ICD-10 - Z01.818) September, Other See orders for this visit as documented in the electronic medical record. After physical exam, patient's main issue in the left hand (pinky and ring finger), we offered 3 treatment options injection, medication, or surgery. Patient would like to proceed with surgery at this time. [employer] Other Evaluation noteNo InformationNortL[facility] [employer] Other Evaluation note* Diagnosis Onset Date Resolution Status Screening for colorectal cancer acute [facility] Work Phone: Evaluation noteNo assessment information [facility] Work Phone: Evaluation note* Diagnosis Onset Date Resolution Status ASHD (arteriosclerotic heart disease) acute RANDALL (generalized anxiety disorder) acute VIKTOR (obstructive sleep apnea) acute Type 1 diabetes mellitus with hyperglycemia [facility] Work Phone: Evaluation note* Diagnosis Type 2 diabetes mellitus with peripheral neuropathy (CMS/HCC)- Primary Long-term insulin use (CMS/HCC) Type 2 diabetes mellitus with peripheral neuropathy (CMS/HCC)- Primary Type 2 diabetes mellitus with both eyes affected by mild nonproliferative retinopathy without macular edema, with long-term current use of insulin (CMS/HCC) Type 2 diabetes mellitus with other circulatory complications (CMS/HCC) Class 3 severe obesity due to excess calories with serious comorbidity and body mass index (BMI) of 40.0 to 44.9 in adult ([facility]/HCC) Type 2 diabetes mellitus with other circulatory complications (CMS/HCC)- Primary Type 2 diabetes mellitus with peripheral neuropathy (CMS/HCC) Type 2 diabetes mellitus with other diabetic arthropathy, with long-term current use of insulin ([facility]) Class 3 severe obesity due to excess calories with serious comorbidity and body mass index (BMI) of 40.0 to 44.9 in adult ([facility]) Type 2 diabetes mellitus with both eyes affected by mild nonproliferative retinopathy without macular edema, with long-term current use of insulin ([facility]) documented in this encounter [facility] HealthcareEvaluation note* Diagnosis Type 2 diabetes mellitus with peripheral neuropathy (CMS/HCC)- Primary Long-term insulin use ([facility]) Type 2 diabetes mellitus with peripheral neuropathy (CMS/HCC)- Primary Type 2 diabetes mellitus with both eyes affected by mild nonproliferative retinopathy without macular edema, with long-term current use of insulin ([facility]) Type 2 diabetes mellitus with other circulatory complications (CMS/HCC) Class 3 severe obesity due to excess calories with serious comorbidity and body mass index (BMI) of 40.0 to 44.9 in adult ([facility]) Type 2 diabetes mellitus with other circulatory complications (CMS/HCC)- Primary Type 2 diabetes mellitus with peripheral neuropathy (CMS/HCC) Type 2 diabetes mellitus with other diabetic arthropathy, with long-term current use of insulin ([facility]) Class 3 severe obesity due to excess calories with serious comorbidity and body mass index (BMI) of 40.0 to 44.9 in adult ([facility]) Type 2 diabetes mellitus with both eyes affected by mild nonproliferative retinopathy without macular edema, with long-term current use of insulin ([facility]/HCC) Type 2 diabetes mellitus with peripheral neuropathy (CMS/HCC)- Primary Type 2 diabetes mellitus with both eyes affected by mild nonproliferative retinopathy without macular edema, with long-term current use of insulin ([facility]) Type 2 diabetes mellitus with other circulatory complications ([facility]/HCC) Type 2 diabetes mellitus with other diabetic arthropathy, with long-term current use of insulin ([facility]/HCC) Class 3 severe obesity due to excess calories with serious comorbidity and body mass index (BMI) of 40.0 to 44.9 in adult ([facility]) documented in this encounter [facility] HealthcareEvaluation note* Diagnosis Onset Date Resolution Status Admit Date ASHD (arteriosclerotic heart disease) acute August 02, 2024 8:32am Hypercholesterolemia acute Jose Carlos h 2024 8:32am VIKTOR (obstructive sleep apnea) acute August 02, 2024 8:32am Screening PSA (prostate spec ific antigen) acute August 02, 2024 8:32am Type 1 diabetes mellitus wit h hyperglycemia acute August 02, 2024 8:32am Wellness examination noneactive Jose Carlos h 2024 8:32am [facility] Work Phone: Evaluation note* Diagnosis Type 2 diabetes mellitus with peripheral neuropathy ([facility])- Primary Long-term insulin use ([facility]) Type 2 diabetes mellitus with peripheral neuropathy ([facility]/HCC)- Primary Type 2 diabetes mellitus with both eyes affected by mild nonproliferative retinopathy without macular edema, with long-term current use of insulin ([facility]) Type 2 diabetes mellitus with other circulatory complications Class 3 severe obesity due to excess calories with serious comorbidity and body mass index (BMI) of 40.0 to 44.9 in adult Type 2 diabetes mellitus with other circulatory complications- Primary Type 2 diabetes mellitus with peripheral neuropathy ([facility]/HCC) Type 2 diabetes mellitus with other diabetic arthropathy, with long-term current use of insulin Class 3 severe obesity due to excess calories with serious comorbidity and body mass index (BMI) of 40.0 to 44.9 in adult Type 2 diabetes mellitus with both eyes affected by mild nonproliferative retinopathy without macular edema, with long-term current use of insulin ([facility]/HCC) Type 2 diabetes mellitus with peripheral neuropathy ([facility]/HCC)- Primary Type 2 diabetes mellitus with both eyes affected by mild nonproliferative retinopathy without macular edema, with long-term current use of insulin ([facility]) 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, with long-term current use of insulin Class 3 severe obesity due to excess calories with serious comorbidity and body mass index (BMI) of 40.0 to 44.9 in adult Pre-ulcerative calluses Left foot pain Pain in soft tissues of limb Localized edema Edema Type II diabetes mellitus with neurological manifestations (CMS/HCC) Type II or unspecified type diabetes mellitus with neurological manifestations, not stated as uncontrolled Acquired keratoderma documented in this encounter [facility] HealthcareHistory and physical note Author Casey Willis [facility] January 10, 2022 7:16am Note Date/Time January 10, 2022 7: 16am [facility] [address] [place] [address] Gastroenterology H&P Signed Patient: April Carlin MR#: [id number] : 1965 Acct:[id number] Age/Sex: 56 / M Adm Date: 2 Loc: Room: Type: [facility] Attending Dr: Casey Willis DO Copies to: DO Casey Francois Jr, ~ Date of Service: 01/10/2022 Gastroenterology HPI History of Present Illness HPI: Mr. Carlin is a 56 year old male for colorectal cancer screening, negative symptoms, family history of colon cancer (father), last colonoscopy was [address] Yee. Review of Systems Review of Systems All other systems reviewed & are negative unless noted below or in HPI PMFSH Vaccinated for COVID-19?: Yes Medical History Diabetes type 1 since 19 Hyperlipidemia Hypertension VIKTOR (obstructive sleep apnea) Surgical History History of appendectomy History of cardiac catheterization x3 History of tonsillectomy S/P trigger finger release x4 Stented coronary artery x3 Family History Family/Other No problems noted. Grandparent Heart attack Father History of heart surgery Colon cancer Heart attack Liver metastasis Brother Gout Social History Smoking Status: Never smoker Substance Use Type: Alcohol Meds Home and Active Medications Home and Active Medications: Home Medications aspirin 81 mg tablet,delayed release (Aspir-) 81 mg PO QAM 09/16/18 [History Confirmed 01/10/22] lisinopril 40 mg tablet 40 mg PO QAM 09/16/18 [History Confirmed 01/10/22] metoprolol succinate 50 mg capsule sprinkle, ext. release 24 hr 50 mg PO QAM 09/16/18 [History Confirmed 01/10/22] amlodipine 10 mg tablet 5 mg PO QAM 08/11/19 [History Confirmed 01/10/22] atorvastatin 40 mg tablet 40 mg PO HS 08/11/19 [History Confirmed 01/10/22] nitroglycerin 0.4 mg sublingual tablet 0.4 mg sublingual Q5-15M PRN chest pain #60 tabs 08/13/19 [Rx Confirmed 01/10/22] empagliflozin 10 mg tablet (Jardiance) 10 mg PO DAILY 01/10/22 [History Confirmed 01/10/22] insulin degludec 200 unit/mL (3 mL) subcutaneous pen (Tresiba FlexTouch U-200 insulin) 70 unit subcut DAILY 01/10/22 [History Confirmed 01/10/22] insulin lispro 200 unit/mL (3 mL) subcutaneous pen (Humalog KwikPen U-200 Insulin) 1 unit subcut TID 01/10/22 [History Confirmed 01/10/22] Active Medications Sodium Chloride (0.9% Sodium Chloride 1,000 Ml) 1,000 mls @ 20 mls/hr IV .Q24H WHITNEY Stop: 01/10/23 06:14 Last Admin: 01/10/22 06:30 Dose: 20 mls/hr Sodium Chloride (Sodium Chloride 0.9 % 10 Ml Syringe) 0 ml IV-PUSH PRN PRN PRN Reason: Flush Stop: 01/10/23 06:09 Exam Physical Exam Vital Signs: Temp Pulse Resp BP Pulse Ox O2 Del Method 98.4 F 81 16 140/67 96 Room Air 01/10/22 06:26 01/10/22 06:26 01/10/22 06:26 01/10/22 06:26 01/10/22 06:26 01/10/22 06:26 Const General: no acute distress Orientation: alert and oriented x3 Resp Effort & Inspection: normal respiratory effort Auscultation: clear to auscultation bilaterally Cardio Rate: regular rate Rhythm: regular rhythm GI Palpation: soft and nontender Auscultation: normal bowel sounds Extrem General: no edema Results Labs Labs: Laboratory Results - last 24 hr 01/10/22 06:27 POC Glucose 80 A&P - Gastroenterology Assessment/Plan (1) Screening for colorectal cancer: Code(s): Z12.11 - Encounter for screening for malignant neoplasm of colon; Z12.12 - Encounter for screening for malignant neoplasm of rectum Status: Acute Plan colonoscopy for evaluation Documented By: Casey Willis Jr, DO 01/10/22 071 2 Signed By: <Electronically signed by Casey Willis Jr, DO> 01/10/22 0716 [facility] Work Phone: Hisbxit general Narrative - Reported* Type Description Date Medical History HTN Medical History Type 1 DM Medical History hyperlipedemia Medical History Heart Disease Surgical History appendectomy 1996 Surgical History 3 heart stents Surgical History right ring finger 04/2014 Hospitalization History SEE ABOVE SURGERY [employer] Other Hiszbnr general Narrative - Reported* Type Description Date Medical History HTN Medical History Type 1 DM Medical History hyperlipedemia Medical History Heart Disease Surgical History appendectomy 1996 Surgical History 3 heart stents Surgical History right ring finger 04/2014 Surgical History left ring/pinky A-[address] España 11/25/2021 Hospitalization History SEE ABOVE SURGERY [employer] Other [facility] [employer] Other Hisoazr general Narrative - Reported* Type Description Date Medical History HTN Medical History Type 1 DM Medical History hyperlipedemia Medical History Heart Disease Surgical History appendectomy 1996 Surgical History 3 heart stents Surgical History right ring finger 04/2014 Surgical History left ring/pinky A-1 cara rele ase by Dr. España 11/25/2021 Surgical History LHC w/o intervention 10/2022 Hospitalization History SEE ABOVE SURGERY [employer] Other Hospital Discharge instructions Additional Instructions Trigger finger release Maintain your postoperative dressing for 72 hours after surgery. After this time the dressing can be removed and you may wash your hands normally with warm soapy water. You may keep the incision covered with a Band-Aid if you wish. We will remove the sutures at your follow- up appointment. You may ice and elevate for the first 72 hours as you see fit. This can help with inflammation and swelling. You are weightbearing as tolerated and range of motion as tolerated to the hand wrist and fingers. Take medications as prescribed. You may take Motrin or Tylenol [id number] if you wish. Follow-up in 1 week for reevaluation suture removal. Call to make an appointment if you have not already scheduled one. Dr. Vinicio España [facility] [employer] [place] [address] [facility] Work Phone: Hospital Discharge instructions Additional Instructions DISCHARGE INSTRUCTIONS FOR CARDIAC CERAMIST PHONE NUMBER OF YOUR PHYSICIAN: [phone] PROCEDURE: Heart Cath The following instructions have been prepared to help you care for yourself, or be cared for upon your return home. 1. You were given conscious sedation. Do not operate a vehicle, power tools, make important decisions, or drink alcohol for 24 hours. You might be drowsy or light headed. Return to the Emergency Room if you have trouble breathing, walking or nausea and vomiting. 2. FOR BLEEDING: Apply continuous pressure to the site and call 911. 3. Operative Site Care: Keep the dressing clean and dry. You may change the dressing only if soiled or wet. You may remove the dressing the following morning. You may wash over the puncture site in the shower. If the puncture site is at the wrist no soaking for 3 days. Some bruising or slight swelling may be present. -Signs of infection are redness, warmth, swelling, getting more sore, colored drainage, fever or chills. -Should the arm or leg become cold, numb, blue or white, call the pv design and installation technician immediately. 4. ACTIVITY: You are advised to go directly home from the hospital. Restrict your activities for the rest of the day. Resume light or normal activities tomorrow. Do not engage in any activity that will stress the puncture site. Avoid heavy lifting (over 15 lbs.), straining or bending at the catheter site for 48 hours after discharge. If the puncture site is at the wrist do not manipulate wrist for 24 hours and no lifting more than 3 lbs for 3 days. 5. DIET:You may eat your regular diet when you desire. 6. MEDICATIONS: Resume your daily prescription schedule. Prescriptions may be sent with you if needed. Use as directed. When taking pain medications, you may experience dizziness or drowsiness. Do not drink alcohol or drive when taking pain medications. 7. If you should experience episodes of angina e.g. chest discomfort, heaviness, tightness, pressure, burning, with or without radiation to the neck, jaws, arms, or back- Use 1 Nitrostat under your tongue every 5-10 minutes, and up to 3 tablets. If no relief- Call 911 and go to the nearest Emergency Room. -Notify the office for recurrent angina, chest pain or other concerns. You may NOT drive yourself home! Follow the medication instructions provided on your discharge. If the dosages and instructions on this sheet differ from the dosage and instructions on the bottle, follow the instructions on the bottle. [facility] is not responsible for incorrect prescription information provided by the patient during their visit. Do not stop your medications without consulting your health care provider. Please take the list with you to your next doctor's appointment.[facility] Work Phone: Chief Complaint * APRIL CARLIN is being seen for an annual follow-up of. * Patient is a 55-year-old gentleman returns for follow-up he is doing very well he has no cardiovascular complaints. He remains on appropriate guideline directed medical therapies as reviewed with excellent hemodynamics. He remains overweight but otherwise very active. He has underlying diabetes, hyp erlipidemia, hypertension and obesity. He has a history of prior ACS with revascularization of the LAD and RCA 2019 * Recommendations, obtain appropriate laboratories, counseling on dietary discretion, weight loss andexercise, will follow-up in 1 year * APRIL CARLIN is being seen for an annual follow-up of. * 56-year-old gentleman returns for follow-up he is doing well he has no cardiovascular complaints. He is getting anywhere between 8000 and 13,000 steps in per day with no angina, nitrate usage or recurrent cardiac events or symptoms. He has had previous PCI of the LAD 2019 has persistent obesity and diabetes and remains on appropriate guideline directed medical therapies as reviewed * Recommendations: Obtain lipid panel, high-sensitivity CRP, will follow-up in 1 year APRIL CARLIN is being seen for new onset angina.* APRIL CARLIN is being seen for new onset angina. * 57-year-old gentleman returns for early follow-up with new onset angina over the past 3 weeks, use nitroglycerin several times as well as a nitro patch even had breakthrough angina on the Nitropatch this past couple weeks and now has angina at rest, with relief with nitroglycerin. He also has exertional dyspnea. He has 1/4 acre of lawn to cut that used to take him only 20 minutes to perform now takes him over an hour to perform because of exertional dyspnea * This represents likely in-stent restenosis or progressive disease * He has a history of PCI of the proximal and mid LAD in August 2018, and previous PCI of the RCA remotely.. Upon last year's office visit he was performing 13,000 steps daily and even more recently in August he and his did 300,000 step challenge over that month successfully. His symptoms only started 3 weeks ago. * He has underlying diabetes mellitus, obesity, essential hypertension, hyperlipidemia and remains onappropriate GDMT including nitrates * Recommendations, proceed with urgent left heart cath and possible revascularization, risk, benefits, alternatives, have been discussed with him and the patient for over 30 minutes this morning will initiate clopidogrel upstream with a bolus, will see him in the [facility] Monday morning. * APRIL CARLIN is being seen for a 6 week follow-up of. Heart cath. * 57-year-old gentleman returns following recent heart catheterization performed for progressive symptomatology, and known history of ASHD with remote PCI's involving the proximal through mid LAD in August 2018 and remotely RCA. * Catheterization revealed widely patent stents and normal left ventricular function * He is back to normal activities without any significant angina or chest discomfort getting in [id number] steps a day. He has underlying obesity, controlled hypertension and hyperlipidemia * He now states that he believes his exertional dyspnea and discomfort were likely related to post hold taking with his son. * Recommendations, continue current therapies we will follow-up in 1 year * APRIL CARLIN is being seen for a 6 week follow-up of. Heart cath. * 57-year-old gentleman returns following recent heart catheterization performed for progressive symptomatology, and known history of ASHD with remote PCI's involving the proximal through mid LAD in August 2018 and remotely RCA. * Catheterization revealed widely patent stents and normal left ventricular function * He is back to normal activities without any significant angina or chest discomfort getting in [id number] steps a day. He has underlying obesity, controlled hypertension and hyperlipidemia * He now states that he believes his exertional dyspnea and discomfort were likely related to post hold taking with his son. * Recommendations, continue current therapies we will follow-up in 1 year Family History No Family History Records FoundUnknown Family Member Name Dates Details Irregular heartbeat: Mother Status:Active Family history of bundle bra nch block: Mother(V17.49, Z82.49) Status:Active Family history of malignant neoplasm of prostate: Father(V16.42, Z80.42) Status:Active Relationship Condition Age at Onset Recorded Date/T steve grandparent Myocardial infarction Unknown father History of heart surgery Unknown Malignant neoplasm of colon Unknown Myocardial infarction Unknown Malignant neoplasm metastatic to liver Un known brother Gout Unknown Unknown Family Member Name Dates Details Family history of malignant neoplasm of prostate: Father(V16.42, Z80.42) Status:Active Family history of bundle bra nch block: Mother(V17.49, Z82.49) Status:Active Irregular heartbeat: Mother Status:Active Unknown Family Member Name Dates Details Family history of malignant neoplasm of prostate: Father(V16.42, Z80.42) Status:Active Family history of bundle bra nch block: Mother(V17.49, Z82.49) Status:Active Irregular heartbeat: Mother Status:Active Unknown Family Member Name Dates Details Irregular heartbeat: Mother Status:Active Family history of bundle bra nch block: Mother(V17.49, Z82.49) Status:Active Family history of malignant neoplasm of prostate: Father(V16.42, Z80.42) Status:Active Relationship Condition Age at Onset Recorded Date/T steve grandparent Myocardial infarction Unknown father History of heart surgery Unknown Malignant neoplasm of colon Unknown Malignant neoplasm metastatic to liver Un known brother Gout Unknown natural son Gout Unknown Unknown Family Member Name Dates Details Family history of malignant neoplasm of prostate: Father(V16.42, Z80.42) Status:Active Family history of bundle bra nch block: Mother(V17.49, Z82.49) Status:Active Irregular heartbeat: Mother Status:Active Relationship Condition Age at Onset Recorded Date/T steve grandparent Myocardial infarction Unknown father History of heart surgery Unknown Malignant neoplasm of colon Unknown Malignant neoplasm metastatic to liver Un known Unknown brother Gout Unknown son Gout Unknown brother Hypertension Unknown Chief Complaint and Reason for Visit Chief Complaint Admit Date wellness August 02, 2024 8:32 am right wrist pain August 21, 2024 2:4 6pm Reason for Visit Admit Date ASHD (arteriosclerotic heart disease) [facility] 2024 8:32am Hypercholesterolemia August 02, 2024 8:3 2am VIKTOR (obstructive sleep apnea) August 02, 2024 8:32am Screening PSA (prostate specific antigen ) August 02, 2024 8:32am Type 1 diabetes mellitus with hyperglyce nathan August 02, 2024 8:32am Wellness examination August 02, 2024 8:3 2am Chief Complaint Family Hx Colon Canc er Family Hx Colon Cancer Reason for Visit Screening for colore ctal cancer Chief Complaint Family Hx Colon Canc er Family Hx Colon Cancer Right Trigger Finger Reason for Visit Screening for colore ctal cancer Chief Complaint Family Hx Colon Canc er Family Hx Colon Cancer Right Trigger Finger Right Trigger Finger Reason for Visit Screening for colore ctal cancer Chief Complaint Hx of PTCA, Angina Hx of PTCA, Angina Chief Complaint anxitey attacks Reason for Visit ASHD (arteriosclerot ic heart disease) RANDALL (generalized anxiety disorder) VIKTOR (obstructive sleep apnea) Type 1 diabetes mellitus with hyperglycemia Chief Complaint Admit Date wellness August 02, 2024 8:32 am Advance Directives No Advanced Directives Records Found Advance Directive Response Recorded Date/ Time Advance Directives No September 16 9:45pm Summary Purpose Additional Source Comments REASON FOR VISIT (unrecogniz ed section and content) Reason Comments Diabetes Care Teams (unrecognized sec tion and content) Team Status: Inactive Member Role Status Dates Tye Champion DO Primary Care Provider Active Casey Willis , DO Attending Provider Active Team Status: Active Member Role Status Dates Tye Champion DO Primary Care Provider Active Team Status: Inactive Member Role Status Dates Tye Champion DO Primary Care Provider Active Vinicio España , DO Attending Provider Active Team Status: Inactive Member Role Status Dates Tye Champion DO Primary Care Provider Active Jeffrey Ayoub DO Attending Provider Active Team Status: Inactive Member Role Status Dates Tye Champion DO Primary Care Provide r, Attending Provider Active Start: February 19, 2024 End: February 19, 2024 Electric Train [employer] Relationship Specialty Start Date End Date Tye Champion MD [address] [place] [id number] PCP - General Internal Medicine 06/13/23 Electric Train Driver Relationship Specialty Start Date End Date Tye Champion MD [address] [place] [id number] PCP - General Internal Medicine 06/13/23 Team Status: Inactive Member Role Status Dates Tye Champion DO Primary Care Provide r, Attending Provider Active Start: August 02, 2024 End: August 02, 2024 Team Status: Inactive Member Role Status Dates Tye Champion DO Primary Care Provide r, Attending Provider Active Start: August 21, 2024 End: August 21, 2024 Electric Train Driver Relationship Specialty Start Date End Date Tye Champion MD [address] [place] [id number] PCP - General Internal Medicine 06/13/23 Electric Train Driver Relationship Specialty Start Date End Date Tye Champion MD [address] [place] [id number] PCP - General Internal Medicine 06/13/23 (unrecognized sect ion and content) No Status Records FoundNo Status Records FoundNo Status Records FoundNo Status Records FoundNo Status Records Found INFORMATION SOURCE (unrecogn ized section and content) DATE CREATED AUTHOR 05/28/2022 [facility] DATE CREATED AUTHOR AUTHOR'S ORGANIZ ATION 12/30/2022 [facility] DATE CREATED AUTHOR AUTHOR'S ORGANIZ ATION 12/30/2022 [employer] DATE CREATED AUTHOR AUTHOR'S ORGANIZ ATION 01/06/2023 [facility] DATE CREATED AUTHOR AUTHOR'S ORGANIZ ATION 01/06/2024 [facility] DATE CREATED AUTHOR AUTHOR'S ORGANIZ ATION 08/27/2024 [facility] EPIC Goals (unrecognized section and content) Goals may be documented in a n alternate section FOR RECORDS PERTAINING TO PATIENTS WHO ARE OR HAVE BEEN ENROLLED IN A CHEMICAL DEPENDENCY/SUBSTANCEABUSE PROGRAM, SOME INFORMATION MAY BE OMITTED. This clinical summary was aggregated from multiple sources. Caution should be exercised in using it in the provision of clinical care. This summary normalizes information from multiple sources, and as a consequence, information in this document may materially change the coding, format and clinical context of patient data. In addition, data may be omitted in some cases. CLINICAL DECISIONS SHOULD BE BASED ON THE PRIMARY CLINICAL RECORDS. [facility]. provides no warranty or guarantee of the accuracy or completeness of information in this document.
[2024-09-07 10:09] LABS: Creatinine Urine Random 52.31 mg/dL (20.00-300.00); Microalbumin Urine Random <1.3 mg/dL (<=30.0)
[2024-09-07 10:09] LABS: Basophils Absolute Auto 0.1 10^3/uL (0.0-0.1); Basophils Percent Auto 0.9 % (0.2-2.0); Eosinophils Absolute Auto 0.2 10^3/uL (0.0-0.7); Eosinophils Percent Auto 2.1 % (0.9-7.0); Hemoglobin 16.7 g/dL (14.0-18.0); Immature Granulocytes Abs Auto 0.04 10^3/uL (0.00-0.03); Immature Granulocytes Pct Auto 0.5 % (0.0-0.5); Lymphocytes Absolute Auto 1.6 10^3/uL (1.2-3.8); Lymphocytes Percent Auto 20.5 % (20.5-60.0); Mean Corpuscular HGB Conc 33.4 g/dL (29.9-35.2); Mean Corpuscular Hemoglobin 28.3 pg (25.9-34.0); Mean Corpuscular Volume 84.6 fL (80.0-94.0); Mean Platelet Volume 11.1 fL (9.5-13.5); Monocytes Absolute Auto 0.6 10^3/uL (0.3-0.8); Monocytes Percent Auto 7.2 % (1.7-12.0); Neutrophils Absolute Auto 5.2 10^3/uL (1.4-6.5); Neutrophils Percent Auto 68.8 % (43.0-75.0); Platelet Count 264 10^3/uL (150-450); Red Blood Count 5.91 10^6/uL (4.70-6.10); White Blood Count 7.6 10^3/uL (4.0-11.0)
[2024-09-07 10:42] LABS: Alanine Aminotransferase 27 U/L (16-63); Albumin Globulin Ratio 1.2; Albumin Level 3.7 g/dL (3.4-5.0); Alkaline Phosphatase 124 U/L (46-116); Anion Gap 14.1; Aspartate Amino Transferase 22 U/L (15-37); BUN Creatinine Ratio 19.4; Bilirubin Total 0.6 mg/dL (0.2-1.0); Carbon Dioxide 22.6 mmol/L (21.0-32.0); Chloride 104 mmol/L (98-107); Chol HDL Ratio 2.7; Cholesterol 127 mg/dL (<=200); Estimated GFR (African America >60 (>=60 mL/min/1.73m^2); Estimated GFR (Non-African Ame >60 (>=60 mL/min/1.73m^2); Globulin 3.1 g/dL; Glucose 221 mg/dL (74-106); HDL Cholesterol 47 mg/dL (40-60); Potassium 4.7 mmol/L (3.5-5.1); Sodium 136 mmol/L (136-145); Total Protein 6.8 g/dL (6.4-8.2); Triglycerides 70 mg/dL (<=150)
[2024-09-07 10:58] LABS: Prostate Specific Antigen Scrn 0.34 ng/mL (<=4.00)
== END 2024-09-07 09:13 | disposition home or self-care (01) ==
PROVIDERS: PCP Internal Medicine; Visit Provider Internal Medicine
DX: Z00.00 Encounter for general adult medical examination without abnormal findings (principal); Z12.5 Encounter for screening for malignant neoplasm of prostate
CPT/HCPCS: 36415; 80053; 80061; 82043; 82570; 85025; G0103